=== PATIENT | female | born 1955 | race Caucasian/White ===

== ENCOUNTER 2019-09-01 14:48 | Outpatient (CLI) | payer MEDICAID ==
[2019-09-01 18:37] LABS: BASOPHILS % (AUTO) 0.3 %; EOSINOPHILS # (AUTO) 0.1 10^3/uL (0.0-0.7); EOSINOPHILS % (AUTO) 1.3 %; HGB - HEMOGLOBIN 12.3 g/dL (12.0-16.0); LYMPHOCYTES # (AUTO) 1.7 10^3/uL (1.5-3.5); LYMPHOCYTES % (AUTO) 19.1 %; MEAN CORPUSCULAR HEMOGLOBIN 30.1 pg (27.0-31.0); MEAN CORPUSCULAR VOLUME 93.9 fL (81.0-99.0); MEAN PLATELET VOLUME 11.4 fL (7.9-10.8); MONOCYTES # (AUTO) 0.6 10^3/uL (0.0-1.0); NEUTROPHILS # (AUTO) 6.4 10^3/uL (1.5-6.6); NEUTROPHILS % (AUTO) 71.9 %; PLT - PLATELET COUNT 242 10^3/uL (130-450); RED BLOOD COUNT 4.09 10^6/uL (4.20-5.40); RED CELL DISTRIBUTION WIDTH 13.6 % (12.0-15.0); WHITE BLOOD COUNT 8.9 x10^3/uL (4.8-10.8)
[2019-09-01 18:52] LABS: ALBUMIN 3.6 g/dL (3.2-5.5); ALBUMIN/GLOBULIN RATIO 0.9 (1.0-2.2); BILIRUBIN,TOTAL 0.3 mg/dL (0.2-1.0); CALCIUM 8.9 mg/dL (8.5-10.3); CREATININE 0.6 mg/dL (0.4-1.0); TOTAL PROTEIN 7.8 g/dL (6.7-8.2)
[2019-09-01 19:10] LABS: CREATININE,URINE 35.6 mg/dL; MICROALBUM/CREATININE RATIO,UR 95.5 ug/mg (<30.0); MICROALBUMIN,URINE 3.4 mg/dL (0-300.0)
[2019-09-01 19:16] LABS: HB2 TOTAL 12.6 g/dL; HEMOGLOBIN A1C 0.7 g/dL; HEMOGLOBIN A1C % 7.2 % (4.6-6.2)
== END 2019-09-01 23:59 | disposition home or self-care (01) ==
LOC: LAB.N 14:48
PROVIDERS: ATTEND Family Medicine
DX: E11.9 Type 2 diabetes mellitus without complications (principal)
CPT/HCPCS: 36415; 80053; 82043; 82570; 83036; 84443; 85025; 87077; 87086; 87181

== ENCOUNTER 2019-09-01 18:00 | Outpatient (CLI) | payer MEDICAID ==
--- NOTE | 2019-09-02 11:13 | XRAY Report ---
Reason: KNEE JOINT PAIN Procedure Date: 09/01/2019 Accession Number: [id number] / [id number] Procedure: XR - Knee 3 View LT CPT Code: Addended Final Report FULL RESULT: EXAM: LEFT KNEE RADIOGRAPHY EXAM DATE: 09/01/2019 06:27 PM. CLINICAL HISTORY: Knee joint pain. COMPARISON: None. TECHNIQUE: 3 views. FINDINGS: Bones: There is a comminuted fracture of the distal femur, age indeterminate. There is apparent displacement of the condyles from the shaft. Detailed evaluation is limited by bony demineralization and obscuration by indwelling hardware from prior arthroplasty. Joints: Right suprapatellar joint effusion. No subluxation. Soft Tissues: Moderate soft tissue swelling. Few regional soft tissue calcifications. IMPRESSION: Comminuted distal femur fracture, age indeterminant. RADIA The call report notification system was initiated by Dr. Nina Iglesias at 11:04 AM on 09/02/2019. Discussed results with Dr. Nelly Livingston . ADDENDUM: 09/02/19 11:13 The above call report findings were discussed with NELLY Livingston by Dr. Nina Iglesias at 11:10 AM on 09/02/2019.
== END 2019-09-01 18:01 | disposition home or self-care (01) ==
LOC: DI 18:00
PROVIDERS: ATTEND Family Medicine
DX: S72.492A Other fracture of lower end of left femur, initial encounter for closed fracture (principal); E11.9 Type 2 diabetes mellitus without complications; R39.9 Unspecified symptoms and signs involving the genitourinary system
CPT/HCPCS: 36415; 80053; 82043; 82570; 83036; 84443; 85025; 87077; 87086; 87181

== ENCOUNTER 2019-09-02 20:13 | Outpatient (CLI) | payer MEDICAID | END 2019-09-02 23:59 | disposition critical access hospital (66) | LOC: EMS 20:13 | PROVIDERS: ATTEND Surgery | DX: M79.605 Pain in left leg (principal); W19.XXXA Unspecified fall, initial encounter; Y92.039 Unspecified place in apartment as the place of occurrence of the external cause | CPT/HCPCS: A0425; A0429 ==

== ENCOUNTER 2019-09-02 20:31 | Emergency (ER) | payer MEDICAID ==
--- NOTE | 2019-09-02 23:29 | CT Report ---
Reason: deliniation of fracture on plain film. Procedure Date: 09/02/2019 Accession Number: [id number] / [id number] Procedure: CT - LOWER EXTREMITY WO - LT CPT Code: Final Report FULL RESULT: EXAM: LEFT KNEE CT WITHOUT CONTRAST EXAM DATE: 09/02/2019 10:39 PM. CLINICAL HISTORY: Preoperative delineation of femur fracture noted on plain film. COMPARISON: KNEE 3 VIEW LT 09/01/2019 6:05 PM. TECHNIQUE: Thin-section axial images were acquired of the knee without contrast. Post-processing: Coronal and sagittal reformats. Other: None. In accordance with CT protocol optimization, one or more of the following dose reduction techniques were utilized for this exam: automated exposure control, adjustment of mA and/or KV based on patient size, or use of iterative reconstructive technique. FINDINGS: Bones: Osteopenia. There is a 3 component total knee prosthesis. A large amount of bone formation is seen at the medial aspect of the distal femur in the area of the prosthesis. This appears to be mature bone formation. A definite acute femur fracture is not identified but could be obscured due to a large amount of beam hardening artifact. Suspected nondisplaced fracture is seen along the lateral aspect of the patella. This is also poorly seen because of beam hardening artifact. No acute fracture identified in the visualized portions of the tibia or fibula. Joints: Lateral dislocation of the patella is noted. There probably is minimal joint effusion. Musculature: Atrophy is pronounced for age. Other: No popliteal fossa cyst is identified. Vascular calcifications. Mild soft tissue swelling. IMPRESSION: 1. Total knee prosthesis with lateral dislocation of the patella. 2. Suspect fracture along the lateral aspect of the patella, suboptimally seen due to beam hardening artifact. 3. There appears to be mature bone formation at the medial aspect of the distal femur. No definite acute femur fracture is seen but could be obscured due to a large amount of beam hardening artifact. RADIA
--- NOTE | 2019-09-02 23:52 | ED Physician Documentation ---
PD HPI LOWER EXT INJURY - Stated complaint Stated Complaint: Femur Fx - Chief complaint Chief Complaint: Ext Problem - History obtained from History obtained from: Patient - History of Present Illness PD HPI LOW EXT INJURY LOCATION: Left, Knee Type of injury: Other (travel from [place]) Timing - onset: How many days ago (2) Timing - duration: Days (2) Timing - details: Gradual onset, Still present Improved by: Rest, Immobilization Worsened by: Moving, Palpating Associated symptoms: No: Weakness, Numbness, Tingling, Swelling, Discolored Contributing factors: Prior ortho surgery, Prosthetic joint Similar symptoms before: No diagnosis Recently seen: Not recently seen - Additional information Additional information: 63-year-old disabled female with a 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 She does have assistance of her family to help her in and out of bed and onto a wheeled walker. She is able to get onto the wheeled walker by herself she is not able to get up off of the wheeled walker by herself. She does usually use her lower extremities for pivots and transfers. She has recently traveled here from [place] where she had been residing until her . She is now being taken care of by her family and [place]. They have gone in to see Dr. Livingston and he has ordered an x-ray of her knee. This demonstrated what appeared to be a possible distal femur fracture. She has an appointment set up for 09/03/2019 with orthopedics. She has come to the emergency department this evening instead. She was told that she would would need splinting for this fracture. She is currently being treated for UTI. She does not give any specific history of fall. Review of Systems Constitutional: denies: Fever Eyes: denies: Decreased vision Respiratory: denies: Cough GI: denies: Vomiting Musculoskeletal: reports: Joint pain, Pain with weight bearing. 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 Rhamnosus GG/Inulin [Culturelle 1 each PO DAILY #14 cap.sprink 09/25/13 Capsule] Ciprofloxacin [Cipro] 500 mg PO BID 10/21/13 10/21/13 Diphenoxylate/Atropine [Lomotil] 1 each PO QID PRN 10/21/13 10/21/13 Rifampin [Rifadin] 300 mg PO BID 10/21/13 10/21/13 Tramadol HCl [Tramadol HCl ER] 100 mg PO BID PRN 10/21/13 10/21/13 metroNIDAZOLE [Flagyl] 500 mg PO TID 10/21/13 10/21/13 Dicyclomine [Bentyl] 10 mg PO QID PRN #15 capsule 10/22/13 - Allergies Allergies/Adverse Reactions: Allergies Allergy/AdvReac Type Severity Reaction Status Date / Time morphine Allergy Unknown unknown Verified 09/02/19 20:38 Penicillins Allergy Unknown unknown Verified 09/02/19 20:38 - Social History Does the pt smoke?: No Smoking Status: Never smoker Does the pt drink ETOH?: No Does the pt have substance abuse?: No - Immunizations Immunizations are current?: Yes - POLST Patient has POLST: No PD ED PE NORMAL - Vitals Vital signs reviewed: Yes (tachy and hypertensive) - General General: No acute distress, Well developed/nourished - HEENT HEENT: Atraumatic, PERRL, EOMI - Respiratory Respiratory: No respiratory distress - Derm Derm: Normal color, Warm and dry, No rash - Extremities Extremities: Other (There is mild pain to palpation of the left knee without obvious joint effusion and without specificity to the pain. It does not seem to be reproducible to any specific area of the knee. There are well healed surgical scars present. The knee moves through a ROM without pain. Distal n/v is intact. ) - Neuro Neuro: Alert and oriented X 3, bander and cellophaner machine 2-12 intact, No motor deficit, No sensory deficit, Normal speech Eye Opening: Spontaneous Motor: Obeys Commands Verbal: Oriented GCS Score: 15 - Psych Psych: Normal mood, Normal affect Results - Vitals Vitals: Vital Signs - 24 hr 09/02/19 09/02/19 09/02/19 20:36 22:00 22:48 Temperature 37.5 C 37.2 C Heart Rate 103 H 101 H 103 H Respiratory 16 16 24 Rate Blood Pressure 142/102 H 117/74 138/64 H O2 Saturation 99 95 98 09/02/19 23:58 Temperature 37.4 C Heart Rate 104 H Respiratory 20 Rate Blood Pressure 139/80 H O2 Saturation 92 Oxygen O2 Source Room air - Rads (name of study) knee CT Radiology: Prelim report reviewed (Impression: 1. Total knee prosthesis with lateral dislocation of the patella. Suspect fracture along the lateral aspect of the patella, suboptimally seen due to beam hardening artifact. There appears to be mature bone formation at the medial aspect of the distal femur. No definite acute femur fracture is seen but could be obscured due to a large amount of beam hardening artifact.), EMP read indepedently, See rad report PD MEDICAL DECISION MAKING - ED course Complexity details: reviewed results, re-evaluated patient, considered differential, d/w patient, d/w family, d/w building consultant ([facility] here recommends CT to further deliniate and recommends placement of a long leg knee immobilizer and follow up in 1-2 weeks. ) ED course: 63-year-old female with what appears to be an overuse injury to her left knee has had a plain film done of the knee which shows a potential distal femur fracture with a area of well-corticated bone. This does to me appear old in nature and I consulted Dr. Sanon who recommended further evaluation with a CT scan and this did have a lot of beam hardening artifact in it but a specific distal femur fracture was not fully appreciated. There is some abnormality to the patella noted and this also appears chronic. The patient is placed into a knee immobilizer and she was able to assist with a pivot transfer with use of this. She did have pain associated with this and she did have difficulty in getting up to ambulate. She will be taken care of by her family and she will follow up with orthopedics with the thought that if she does not improve she may need a scan done with a scanner that can do digital subtraction of the prosthesis. Departure - Departure Disposition: 01 Home, Self Care Clinical Impression: Knee pain, left Qualifiers: Chronicity: acute Qualified Code(s): M25.562 - Pain in left knee Condition: Stable Instructions: ED Immobilizer Knee Follow-Up: NELLY LIVINGSTON MD [Provider Admit Priv/Credential] - [facility] [Provider Group] Discharge Date/Time: 09/03/19 00:10
[2019-09-02 23:59] VITALS: BP 139/80
== END 2019-09-03 00:10 | disposition home or self-care (01) ==
LOC: EDUNIT# → ED 20:31
DX: M25.562 Pain in left knee (principal); Z96.652 Presence of left artificial knee joint; N39.0 Urinary tract infection, site not specified; E11.9 Type 2 diabetes mellitus without complications; Z79.84 Long term (current) use of oral hypoglycemic drugs; Z96.649 Presence of unspecified artificial hip joint
CPT/HCPCS: 99283; 99284

== ENCOUNTER 2019-09-05 21:16 | Outpatient (CLI) | payer MEDICAID | END 2019-09-05 23:59 | disposition critical access hospital (66) | LOC: EMS 21:16 | PROVIDERS: ATTEND Surgery | DX: R11.0 Nausea (principal); R19.7 Diarrhea, unspecified | CPT/HCPCS: A0425; A0429; A0999 ==

== ENCOUNTER 2019-09-05 21:36 | Emergency (ER) | payer MEDICAID ==
--- NOTE | 2019-09-05 22:09 | ED Physician Documentation ---
PD HPI NVD - Stated complaint Stated Complaint: DIARRHEA - Chief complaint Chief Complaint: Abd Pain - History obtained from History obtained from: Patient - History of Present Illness Timing - onset: How many weeks ago (1) Timing - details: Abrupt onset, Intermittant Associated symptoms: No: Fever, Abdominal pain Contributing factors: Recent antibiotics Worsened by: Other (nothing) Recently seen: Emergency Dept - Additonal information Additional information: c/o diarrhea every other day for a week, per patient. Review of Systems Constitutional: reports: Reviewed and negative Cardiac: reports: Reviewed and negative Respiratory: reports: Reviewed and negative GI: reports: Diarrhea. 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 Rhamnosus GG/Inulin [Culturelle 1 each PO DAILY #14 cap.sprink 09/25/13 Capsule] Ciprofloxacin [Cipro] 500 mg PO BID 10/21/13 10/21/13 Diphenoxylate/Atropine [Lomotil] 1 each PO QID PRN 10/21/13 10/21/13 Rifampin [Rifadin] 300 mg PO BID 10/21/13 10/21/13 Tramadol HCl [Tramadol HCl ER] 100 mg PO BID PRN 10/21/13 10/21/13 metroNIDAZOLE [Flagyl] 500 mg PO TID 10/21/13 10/21/13 Dicyclomine [Bentyl] 10 mg PO QID PRN #15 capsule 10/22/13 Vancomycin [Vancocin] 125 mg PO QID #39 capsule 09/05/19 - Allergies Allergies/Adverse Reactions: Allergies Allergy/AdvReac Type Severity Reaction Status Date / Time morphine Allergy Unknown unknown Verified 09/02/19 20:38 Penicillins Allergy Unknown unknown Verified 09/02/19 20:38 - Social History Does the pt smoke?: No Smoking Status: Never smoker Does the pt drink ETOH?: No Does the pt have substance abuse?: No - Immunizations Immunizations are current?: Yes - POLST Patient has POLST: No PD ED PE NORMAL - Vitals Vital signs reviewed: Yes - General General: Alert and oriented X 3, No acute distress, Well developed/nourished - Cardiac Cardiac: RRR, No murmur - Respiratory Respiratory: No respiratory distress, Clear bilaterally - Abdomen Abdomen: Soft, Non tender Results - Vitals Vitals: Oxygen O2 Source Room air PD MEDICAL DECISION MAKING - ED course Complexity details: reviewed old records, considered differential, d/w patient ED course: patient c/o episodic diarrhea x 1 week. recent antibiotic use and h/o c. diff (2013 ED record indicates this). she is unfocussed regarding providing HPI and ROS. I recommended obtaining stool for c. diff. However, she does not want to wait for this, says it could take hours before she is able to provide a stool sample. I am not confident that she will be able to, or interested in, pursuing quick f/u to provide stool sample in outpatient setting with her PMD. considering all of these factor, will treat empirically for c diff. I encouraged her to f/u with PMD, as confirmatory testing might be considered. Departure - Departure Disposition: 01 Home, Self Care Clinical Impression: Diarrhea Qualifiers: Diarrhea type: unspecified type Qualified Code(s): R19.7 - Diarrhea, unspecified Condition: Good Instructions: ED Diarrhea Bacterial Follow-Up: NELLY PUENTE MD [Primary Care Provider] - Prescriptions: Vancomycin [Vancocin] 125 mg PO QID #39 capsule Discharge Date/Time: 09/05/19 23:25
[2019-09-05] MEDS ORDERED: VANCOMYCIN 125 MG CAPSULE PO SCH (23:00)
[2019-09-05 23:23] VITALS: BP 114/79
== END 2019-09-05 23:25 | disposition home or self-care (01) ==
LOC: EDUNIT# → ED 21:36
DX: R19.7 Diarrhea, unspecified (principal); Z87.19 Personal history of other diseases of the digestive system; E11.9 Type 2 diabetes mellitus without complications; Z79.84 Long term (current) use of oral hypoglycemic drugs
CPT/HCPCS: 99283

== ENCOUNTER 2019-09-09 23:12 | Outpatient (CLI) | payer MEDICAID | END 2019-09-09 23:59 | disposition critical access hospital (66) | LOC: EMS 23:12 | PROVIDERS: ATTEND Surgery | DX: R46.4 Slowness and poor responsiveness (principal); M54.5 Low back pain; R53.1 Weakness | CPT/HCPCS: A0425; A0429; A0999 ==

== ENCOUNTER 2019-09-09 23:33 | Inpatient (IN) | payer MEDICAID ==
--- NOTE | 2019-09-09 23:46 | ED Physician Documentation ---
History of Present Illness - Stated complaint Stated Complaint: WEAKNESS - Additonal information Additional information: This is a 63-year-old female with a history of diabetes who was sent in via EMS due to confusion. Patient reportedly was recently diagnosed a UTI, she apparent ly has been receiving Bactrim for this Since 09/03, but over last day she has had increasing confusion prompting her daughter to call EMS to bring her in for evaluation. There were no report of falls or head trauma. She denies any pain or complaints at this time. Patient is a very poor historian and rambles with her speech is unable to provide further information. She was previously living in [place] but moved out here for her daughter to help take care of her. 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 Rhamnosus GG/Inulin [Culturelle 1 each PO DAILY #14 cap.sprink 09/25/13 Capsule] Ciprofloxacin [Cipro] 500 mg PO BID 10/21/13 10/21/13 Diphenoxylate/Atropine [Lomotil] 1 each PO QID PRN 10/21/13 10/21/13 Rifampin [Rifadin] 300 mg PO BID 10/21/13 10/21/13 Tramadol HCl [Tramadol HCl ER] 100 mg PO BID PRN 10/21/13 10/21/13 metroNIDAZOLE [Flagyl] 500 mg PO TID 10/21/13 10/21/13 Dicyclomine [Bentyl] 10 mg PO QID PRN #15 capsule 10/22/13 Vancomycin [Vancocin] 125 mg PO QID #39 capsule 09/05/19 - Allergies Allergies/Adverse Reactions: Allergies Allergy/AdvReac Type Severity Reaction Status Date / Time morphine Allergy Unknown unknown Verified 09/02/19 20:38 Penicillins Allergy Unknown unknown Verified 09/02/19 20:38 - Social History Does the pt smoke?: No Smoking Status: Never smoker Does the pt drink ETOH?: No Does the pt have substance abuse?: No - Immunizations Immunizations are current?: Yes - POLST Patient has POLST: No PD ED PE NORMAL - General General: No acute distress - HEENT HEENT: Atraumatic - Cardiac Cardiac: RRR - Respiratory Respiratory: No respiratory distress - Abdomen Abdomen: Soft, Non tender, Other (Rotund) - Extremities Extremities: Other (Brace over LLE) - 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 She answers most questions with rambling stories that are nonsensical, and oftentimes Contain strings of words that do not make sense) Results - Vitals Vitals: Vital Signs - 24 hr 09/09/19 23:40 Temperature 36.6 C Heart Rate 101 H Respiratory 23 Rate Blood Pressure 130/110 H O2 Saturation 91 L Oxygen O2 Source Room air - EKG (time done) 23:57 Other comments: Other comments (Rate 95, rhythm sinus there is no ST segment elevation or depression, no abnormal T wave inversions, intervals within normal limits.) - Labs Labs: Laboratory Tests 09/09/19 09/09/19 09/09/19 00:35 23:55 23:55 WBC 11.0 H RBC 4.10 L Hgb 12.2 Hct 39.4 MCV 96.1 MCH 29.8 MCHC 31.0 L RDW 13.7 Plt Count 263 MPV 11.1 H Neut # (Auto) 7.5 H Lymph # (Auto) 2.3 Coke # (Auto) 0.8 Eos # (Auto) 0.4 Baso # (Auto) 0.0 Absolute Nucleated RBC 0.00 Nucleated RBC % 0.0 VBG pH 7.311 VBG pCO2 43.8 VBG pO2 149.9 H VBG HCO3 21.6 L VBG Total CO2 23.0 L VBG O2 Saturation 98.4 H VBG Base Excess -4.5 L Sodium 137 Potassium 6.4 H* Chloride 106 Carbon Dioxide 24 Anion Gap 7.0 BUN 35 H Creatinine 2.3 H Estimated GFR (MDRD) 21 L Glucose 156 H Lactic Acid Calcium 9.2 Total Bilirubin 0.4 AST 14 ALT 13 Alkaline Phosphatase 105 Total Protein 7.6 Albumin 3.4 Globulin 4.2 Albumin/Globulin Ratio 0.8 L Lipase 26 TSH Urine Color Urine Clarity Urine pH Ur Specific [place] Urine Protein Urine Glucose (UA) Urine Ketones Urine Occult Blood Urine Nitrite Urine Bilirubin Urine Urobilinogen Ur Leukocyte Esterase Urine RBC Urine WBC Ur Squamous Epith Cells Urine Bacteria Ur Microscopic Review Urine Culture Comments Urine Opiates Screen Ur Oxycodone Screen Urine Methadone Screen Ur Propoxyphene Screen Ur Barbiturates Screen Ur Tricyclics Screen Ur Phencyclidine Scrn Ur Amphetamine Screen U Methamphetamines Scrn U Benzodiazepines Scrn Urine Cocaine Screen U Cannabinoids Screen Ethyl Alcohol < 5.0 09/09/19 09/10/19 09/10/19 23:55 00:35 01:28 WBC RBC Hgb Hct MCV MCH MCHC RDW Plt Count MPV Neut # (Auto) Lymph # (Auto) Coke # (Auto) Eos # (Auto) Baso # (Auto) Absolute Nucleated RBC Nucleated RBC % VBG pH VBG pCO2 VBG pO2 VBG HCO3 VBG Total CO2 VBG O2 Saturation VBG Base Excess Sodium Potassium Chloride Carbon Dioxide Anion Gap BUN Creatinine Estimated GFR (MDRD) Glucose Lactic Acid 1.5 Calcium Total Bilirubin AST ALT Alkaline Phosphatase Total Protein Albumin Globulin Albumin/Globulin Ratio Lipase TSH 2.15 Urine Color YELLOW Urine Clarity CLOUDY Urine pH 5.5 Ur Specific [place] >=1.030 H Urine Protein 100 H Urine Glucose (UA) 100 H Urine Ketones TRACE Urine Occult Blood MODERATE H Urine Nitrite POSITIVE H Urine Bilirubin NEGATIVE Urine Urobilinogen 0.2 (NORMAL) Ur Leukocyte Esterase LARGE H Urine RBC 0-5 Urine WBC >25 H Ur Squamous Epith Cells FEW Squamous Urine Bacteria Many H Ur Microscopic Review INDICATED Urine Culture Comments INDICATED Urine Opiates Screen NEGATIVE Ur Oxycodone Screen NEGATIVE Urine Methadone Screen NEGATIVE Ur Propoxyphene Screen NEGATIVE Ur Barbiturates Screen NEGATIVE Ur Tricyclics Screen NEGATIVE Ur Phencyclidine Scrn NEGATIVE Ur Amphetamine Screen NEGATIVE U Methamphetamines Scrn NEGATIVE U Benzodiazepines Scrn POSITIVE H Urine Cocaine Screen NEGATIVE U Cannabinoids Screen POSITIVE H Ethyl Alcohol - Rads (name of study) CXR Radiology: Other (No acute cardiopulmonary abnormality) CT head WO Radiology: Other PD MEDICAL DECISION MAKING - ED course Complexity details: considered differential (UTI, sepsis, stroke, intracranial hemorrhage, pneumonia, electrolyte abnormality, dehydration, MAYO) ED course: On arrival patient is tachycardic, hypertensive, and tachypneic, she is also confused and rambling in her speech. She has no focal deficits, is able to follow commands and her strength, sensation, and cranial nerves are intact. CT head shows no acute intracranial abnormlity. IV was inserted, labs are drawn, blood cultures were drawn, and patient was placed on the monitor. Labs show a leukocytosis of 11, normal hemoglobin, chemistry panel showed a potassium of 6.4, her EKG showed no changes of hyperkalemia, she was given calcium gluconate as well as insulin and glucose. Her creatinine is 2.3 up from 0.6 last week, and her BUN is elevated as well. Her lactate is normal. Her urine shows a nitr ate positive sample with greater than 25 white blood cells, and the urine itself was thick and consistent with infection. Her U tox does show positive benzodiazepines and cannabinoids for unclear reasons. Chest x-ray shows no acute abnormality. Patient was given ceftriaxone as well as normal saline. Review of her past culture shows Proteus mirabilis and E. coli, both sensitive to ceftriaxone. At this time patient appears to have sepsis from a urinary source, with encephalopathy, she also has a MAYO. She was admitted to the hospital for further evaluation and treatment, her heart rate was improving at the time of admission, and she otherwise remained stable Departure - Departure Disposition: [facility] DC/Xfer Clinical Impression: Encephalopathy, Hyperkalemia Sepsis Qualifiers: Sepsis type: sepsis due to unspecified organism Sepsis acute organ dysfunction status: with acute organ dysfunction Severe sepsis acute organ dysfunction type: encephalopathy Severe sepsis shock status: without septic shock Qualified Code(s): A41.9 - Sepsis, unspecified organism Condition: Stable Discharge Date/Time: 09/10/19 03:29
[2019-09-10 00:08] LABS: BASOPHILS % (AUTO) 0.4 %; EOSINOPHILS # (AUTO) 0.4 10^3/uL (0.0-0.7); EOSINOPHILS % (AUTO) 3.4 %; HGB - HEMOGLOBIN 12.2 g/dL (12.0-16.0); LYMPHOCYTES # (AUTO) 2.3 10^3/uL (1.5-3.5); MEAN CORPUSCULAR HEMOGLOBIN 29.8 pg (27.0-31.0); MEAN CORPUSCULAR VOLUME 96.1 fL (81.0-99.0); MEAN PLATELET VOLUME 11.1 fL (7.9-10.8); MONOCYTES # (AUTO) 0.8 10^3/uL (0.0-1.0); MONOCYTES % (AUTO) 7.2 %; NEUTROPHILS # (AUTO) 7.5 10^3/uL (1.5-6.6); NEUTROPHILS % (AUTO) 67.5 %; PLT - PLATELET COUNT 263 10^3/uL (130-450); RED CELL DISTRIBUTION WIDTH 13.7 % (12.0-15.0)
[2019-09-10 00:24] LABS: ALBUMIN 3.4 g/dL (3.2-5.5); ALBUMIN/GLOBULIN RATIO 0.8 (1.0-2.2); ALKALINE PHOSPHATASE 105 IU/L (42-121); ALT ALANINE AMINOTRANSFERASE 13 IU/L (10-60); AST ASPARTATE AMINOTRANSFERASE 14 IU/L (10-42); BILIRUBIN,TOTAL 0.4 mg/dL (0.2-1.0); BUN - BLOOD UREA NITROGEN 35 mg/dL (6-20); CALCIUM 9.2 mg/dL (8.5-10.3); CARBON DIOXIDE - CO2 24 mmol/L (21-32); CHLORIDE 106 mmol/L (101-111); CREATININE 2.3 mg/dL (0.4-1.0); GFR - MDRD 21 (>89); GLUCOSE 156 mg/dL (70-100); LIPASE 26 U/L (22-51); SODIUM 137 mmol/L (135-145); TOTAL PROTEIN 7.6 g/dL (6.7-8.2)
[2019-09-10] MEDS ORDERED: CALCIUM GLUCONATE 2,000 MG in SODIUM CHLORIDE 0.9% 100ML 100 ML IV STA (00:29)
[2019-09-10] MEDS ORDERED: INSULIN REGULAR HUMAN 100 UNIT/1 ML 10 ML MDV IVP STA (00:30)
[2019-09-10] MEDS ORDERED: DEXTROSE 10% 250 ML IV STA ×2 (00:31→05:35)
--- NOTE | 2019-09-10 00:39 | CT Report ---
Reason: Confusion, AMS Procedure Date: 09/10/2019 Accession Number: [id number] / [id number] Procedure: CT - HEAD WO CPT Code: Final Report FULL RESULT: EXAM: CT HEAD EXAM DATE: 09/10/2019 12:29 AM. CLINICAL HISTORY: Confusion, AMS. COMPARISON: CT HEAD W/O CONT 12/22/2012 3:16 PM. TECHNIQUE: Multiaxial CT images were obtained from the foramen magnum to the vertex. Reformats: Sagittal and coronal. IV contrast: None. In accordance with CT protocol optimization, one or more of the following dose reduction techniques were utilized for this exam: automated exposure control, adjustment of mA and/or KV based on patient size, or use of iterative reconstructive technique. FINDINGS: Parenchyma: Compared to the prior study a small lacunar injury has developed in the right globus pallidus measuring 5 mm and another small lacunar injury has developed near the anterior limb of the left internal capsule which measures 7 mm x 5 mm. There are no acute hemorrhages in the brain. No evidence for developing infarcts. Extraaxial Spaces: The CSF spaces are generous for patient this age. No subdural or epidural collections identified. Ventricles: The ventricles have shown progressive enlargement compared to the prior exam together with the prominent sulci findings likely related to volume loss. Sinuses and Orbits: Imaged paranasal sinuses, orbits, and mastoids show no significant abnormality. Bones: No evidence of fracture or calvarial defect. Other: None. IMPRESSION: 1. No acute changes in the brain. 2. Volume loss as described. 3. Old lacunar injuries in the right basal ganglia and left anterior internal capsule. RADIA
--- NOTE | 2019-09-10 00:58 | XRAY Report ---
Reason: chest pain Procedure Date: 09/10/2019 Accession Number: [id number] / [id number] Procedure: XR - Chest 1 View X-Ray CPT Code: 65768 Final Report FULL RESULT: EXAM: CHEST RADIOGRAPHY EXAM DATE: 09/10/2019 12:25 AM. CLINICAL HISTORY: Chest pain. COMPARISON: 04/10/2012 3:45 PM. TECHNIQUE: 1 view. FINDINGS: Lungs/Pleura: No focal opacities evident. No pleural effusion. No pneumothorax. Mediastinum: Within exam limitations, the cardiomediastinal contour is normal. Other: Severe bilateral glenohumeral joint degeneration with deformity. IMPRESSION: Clear lungs with no acute cardiopulmonary process seen. Severe bilateral glenohumeral joint degeneration with deformity. RADIA
[2019-09-10] MEDS ORDERED: SODIUM CHLORIDE 0.9% 500 ML IV ONE (01:01)
[2019-09-10 01:07] LABS: VBG BASE EXCESS -4.5 mmol/L (-2 - +2); VBG PCO2 43.8 mmHg (41-51); VBG PH 7.311 (7.31-7.41); VBG PO2 149.9 mmHg (25-47)
[2019-09-10 01:34] LABS: MUDS CUTOFF CONCENTRATIONS CUTOFF CONC BELOW:
[2019-09-10 01:39] LABS: BILIRUBIN,URINE NEGATIVE (NEGATIVE); GLUCOSE, URINE (UA) 100 mg/dL (NEGATIVE); KETONES,URINE (UA) TRACE mg/dL (NEGATIVE); LEUKOCYTE ESTERASE, URINE LARGE (NEGATIVE); NITRITE,URINE POSITIVE (NEGATIVE); OCCULT BLOOD,URINE MODERATE (NEGATIVE); PH,URINE 5.5 PH (5.0-7.5); PROTEIN,URINE 100 mg/dL (NEGATIVE); UROBILINOGEN,URINE 0.2 (NORMAL) E.U./dL (NORMAL)
[2019-09-10 01:40] LABS: CLARITY,URINE CLOUDY (CLEAR)
[2019-09-10 01:47] LABS: BACTERIA,URINE Many /HPF (None Seen); RBC,URINE 0-5 /HPF (0-5); SQUAMOUS EPITHELIAL CELL,UR FEW Squamous (<= Few)
[2019-09-10] MEDS ORDERED: cefTRIAXone 1 GM in SODIUM CHLORIDE 0.9% MINIBAG 100 ML IV STA (01:49)
[2019-09-10 01:52] LABS: AMPHETAMINE SCREEN,URINE NEGATIVE (NEGATIVE); BENZODIAZEPINES SCREEN, URINE POSITIVE (NEGATIVE); COCAINE SCREEN URINE NEGATIVE (NEGATIVE); METHADONE SCREEN, URINE NEGATIVE (NEGATIVE); METHAMPHETAMINES SCREEN, URINE NEGATIVE (NEGATIVE); OPIATE SCREEN, URINE NEGATIVE (NEGATIVE); OXYCODONE SCREEN, URINE NEGATIVE (NEGATIVE); PROPOXYPHENE SCREEN, URINE NEGATIVE (NEGATIVE); TRICYCLIC ANTIDEPRESSANT,URINE NEGATIVE (NEGATIVE)
[2019-09-10] MEDS ORDERED: SODIUM CHLORIDE FLUSH 0.9% 10 ML SYRINGE IVP PRN (02:45)
[2019-09-10] MEDS ORDERED: SODIUM CHLORIDE 0.9% 1,000 ML IV ONE (02:49)
--- NOTE | 2019-09-10 02:59 | HISTORY & PHYSICAL EXAMINATION ---
Chief Complaint - Chief Complaint Chief Complaint: encephalopathy History of Present Illness - Admitted From Admitted From:: [facility] ED - History Obtained From Records Reviewed: yes History obtained from: daughter and ED staff Exam Limitations: encephalopathy - History of Present Illness HPI Comment/Other: Patient is a 63 y/o female who was brought in by her daughter with encephalopathy. Her daughter reports that she was alert in the morning when but slowly started getting weak and sleepy through the course of the day. At lunch she could hardly stay awake enough to eat. She was also reaching for things that were not there and mumbling unintelligible words. At dinner she was unarousable. The patient just moved back to [facility] from the [facility] on August 19 2019. She was living there with her who was her main caregiver until he suddenly from a coronary event. She was then in a nursing facility where she was supposedly on antibiotics for ?UTI. It is also reported that she had broken her right leg and it healed wrongly. She has Tbnissw-Aqdcg-Mlmyv Disease and has had multiple orthopedic surgeries. As a result she is full assist for transfers. She is not able to bear weight on her feet. Her daughter has bee lifting her to transfer her for the past days. She had an initial visit with [facility] to establish care. She has been on bactrim since 09/03/19 for a UTI. She had also been having diarrhea and has been on oral vancomycin. It is unclear if C.diff was tested prior. He daughter reports improvement in the diarrhea. In the ED attempt at obtaining a UA resulted in a thick whitish urine sample described as almost sludge-like. It was indicative of a UTI. She had a creatinine of 2.3. Eight days prior her creatinine was 0.6. She was also found to have a potassium of 6.4. though EKG showed normal sinus rhythm. She is currently altered and unable to provide any history. However as a result of these objective findings, she is being admitted for further treatment. 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 Previous records indicate no tobacco or alcohol use - POLST Patient has POLST: No POLST Status: Full Code Meds/Allgy - Home Medications Home Medications: Ambulatory Orders Medication Instructions Recorded Confirmed metFORMIN [Glucophage] 500 mg PO BIDWM 01/31/13 04/07/13 Fesoterodine Fumarate [Toviaz] 4 mg PO DAILY #14 tab.er.24h 04/07/13 Temazepam 7.5 mg PO QPM #14 capsule 04/07/13 HYDROcod/ACETAM 5/325 [Vicodin 1 - 2 ea PO Q6H PRN #15 tablet 09/15/13 5/325] Metronidazole [Flagyl] 500 mg PO TID #30 tablet 09/15/13 Sulfamethox/Trimeth 800/160 1 each PO BID #14 tablet 09/15/13 [Bactrim Ds] L. Rhamnosus GG/Inulin [Culturelle 1 each PO DAILY #14 cap.sprink 09/25/13 Capsule] Ciprofloxacin [Cipro] 500 mg PO BID 10/21/13 10/21/13 Diphenoxylate/Atropine [Lomotil] 1 each PO QID PRN 10/21/13 10/21/13 Rifampin [Rifadin] 300 mg PO BID 10/21/13 10/21/13 Tramadol HCl [Tramadol HCl ER] 100 mg PO BID PRN 10/21/13 10/21/13 metroNIDAZOLE [Flagyl] 500 mg PO TID 10/21/13 10/21/13 Dicyclomine [Bentyl] 10 mg PO QID PRN #15 capsule 10/22/13 Vancomycin [Vancocin] 125 mg PO QID #39 capsule 09/05/19 - Allergies Allergies/Adverse Reactions: Allergies Allergy/AdvReac Type Severity Reaction Status Date / Time morphine Allergy Unknown unknown Verified 09/02/19 20:38 Penicillins Allergy Unknown unknown Verified 09/02/19 20:38 Review of Systems - Other Findings Other Findings: ROS is limited because the patient is currently altered and unresponsive thus unable to provide Prior Level of Functionality: Patient has Fobgdtc-Heqls-Chcoo. She has extensive knee and joint surgeries. She had a recent fracture on the ?right leg which set and healed incorrectly. She is unable to bear weight and is full assist for transfer. Exam - Vital Signs Vital Signs: Vital Signs x48h Temp Pulse Resp BP Pulse Ox 09/09/19 23:40 36.6 C 101 H 23 130/110 H 91 L - Physical Exam General Appearance: positive: No acute distress, Lethargic. negative: Alert Eyes Bilateral: positive: Normal inspection, PERRL, EOMI ENT: positive: ENT inspection nml, Dry mucous membranes Neck: positive: Nml inspection, No JVD, Trachea midline Respiratory: positive: Chest non-tender, No respiratory distress. negative: Wheezes, Rales, Rhonchi Cardiovascular: positive: No murmur, Tachycardia Abdomen: positive: Non-tender, No organomegaly, Nml bowel sounds, Other (obese abdomen) Back: positive: Nml inspection Skin: positive: Color nml, No rash Extremities: positive: No pedal edema, Other (left foot internally rotated Multiple orthopedic surgerical scars on lower extremities) Neurologic/Psychiatric: negative: Oriented x3 Sepsis Event Note (H) - Evaluation Current Stage of Sepsis: Sepsis Possible source of Sepsis: positive: Genitourinary - Sepsis Criteria Sepsis Criteria: Recorded Heart Rate greater than 90 bpm, Recorded Respiratory Rate greater than 20, 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 (unrelated to primary neuro pathology) Conclusion/Plan - Problem List (1) Sepsis Conclusion/Plan: 2/2 UTI Patient currently encephalopathic Blood and urine cultures drawn Patient started on rocephin IV hydration with normal saline Qualifiers: Sepsis type: sepsis due to unspecified organism Sepsis acute organ dysfunction status: with acute organ dysfunction Severe sepsis acute organ dysfunction type: encephalopathy Severe sepsis shock status: without septic shock Qualified Code(s): A41.9 - Sepsis, unspecified organism; R65.20 - Severe sepsis without septic shock; G93.40 - Encephalopathy, unspecified (2) Encephalopathy acute Conclusion/Plan: Likely multi factorial 2/2 Medications: Lyrica, trazodone, tramadol, flexeril Pt was also positive for benzo and ?THC 2/2 UTI Hold all potentially contributing meds. Patient on rocephin. IV hydration Blood and urine cultures pending (3) UTI (urinary tract infection) Conclusion/Plan: On rocephin. IV hydration with normal saline Blood and urine cultures pending (4) MAYO (acute kidney injury) Conclusion/Plan: Creatinine 8 days ago was 0.6. Likely multifactorial Medication: Patient was on bactrim for the past 7 days, diclofenac (NSAID) Pre-renal: Pt has been having diarrhea and poor oral intake Post-renal: UTI Discontinue bactrim. Hold diclofenac. IV hydration with normal saline. On rocephin (5) Hyperkalemia Conclusion/Plan: Potassium was 6.4. Likely related to acute kidney injury Patient given dextrose and insulin in the ED. Hydrating patient with normal saline. Will recheck am labs and treat accordingly. EKG showed NSR (6) Diabetes mellitus Conclusion/Plan: SSI. Accu checks Hold metformin Qualifiers: Diabetes mellitus type: type 2 (7) Chronic pain Conclusion/Plan: Related to Klfbmxb-Hawlk-Vibky and multiple orthopedic surgeries in the hils and knees. Hold tramadol due to encephalopathy. Tylenol only for now. Patient is a full assist. She will likely need placement. Social work consulted (8) Depression Conclusion/Plan: On escitalopram - Lab Results Fish Bones: 09/09/19 23:55 09/09/19 23:55 Core Measures - Anticipated LOS I expect patient to be DC'd or transferred within 96 hours.: Yes - DVT/VTE - Prophylaxis VTE/DVT Device ordered at admit?: Yes VTE/DVT Prophylaxis med ordered at admit?: Yes
[2019-09-10] MEDS: SODIUM CHLORIDE FLUSH 0.9% 10 ML SYRINGE IVP SCH ×2 (04:05→17:38)
[2019-09-10] MEDS: SODIUM CHLORIDE 0.9% 1,000 ML IV SCH ×3 (05:19→21:28)
[2019-09-10 05:24] LABS: BASOPHILS # (AUTO) 0.1 10^3/uL (0.0-0.1); BASOPHILS % (AUTO) 0.4 %; EOSINOPHILS # (AUTO) 0.4 10^3/uL (0.0-0.7); EOSINOPHILS % (AUTO) 3.2 %; HGB - HEMOGLOBIN 11.1 g/dL (12.0-16.0); LYMPHOCYTES # (AUTO) 1.9 10^3/uL (1.5-3.5); LYMPHOCYTES % (AUTO) 15.8 %; MEAN CORPUSCULAR HEMOGLOBIN 30.3 pg (27.0-31.0); MEAN CORPUSCULAR VOLUME 97.8 fL (81.0-99.0); MONOCYTES # (AUTO) 0.8 10^3/uL (0.0-1.0); MONOCYTES % (AUTO) 6.7 %; NEUTROPHILS # (AUTO) 8.7 10^3/uL (1.5-6.6); NEUTROPHILS % (AUTO) 73.4 %; PLT - PLATELET COUNT 261 10^3/uL (130-450); RED BLOOD COUNT 3.66 10^6/uL (4.20-5.40); RED CELL DISTRIBUTION WIDTH 13.5 % (12.0-15.0); WHITE BLOOD COUNT 11.9 x10^3/uL (4.8-10.8)
[2019-09-10 05:26] LABS: CALCIUM 8.6 mg/dL (8.5-10.3); CREATININE 2.2 mg/dL (0.4-1.0)
[2019-09-10 05:28] LABS: HB2 TOTAL 11.1 g/dL; HEMOGLOBIN A1C 0.72 g/dL; HEMOGLOBIN A1C % 8.1 % (4.6-6.2)
[2019-09-10] MEDS ORDERED: INSULIN REGULAR HUMAN 300 UNIT/3 ML VIAL IVP ONE (05:36)
[2019-09-10] MEDS ORDERED: SODIUM POLYSTYRENE SULFONATE 15 GM/60 ML BOTTLE PO ONE ×2 (05:38→14:17)
[2019-09-10] MEDS: INSULIN ASPART 300 UNIT/3 ML PEN SUBQ SCH ×4 (08:44→21:28)
[2019-09-10] MEDS: ENOXAPARIN 30 MG/0.3 ML SYRINGE SUBQ SCH (08:45)
[2019-09-10] MEDS: NYSTATIN POWDER 15 GM TOP SCH ×2 (08:46→21:29)
[2019-09-10 10:22] LABS: CALCIUM 8.3 mg/dL (8.5-10.3); CREATININE 2.1 mg/dL (0.4-1.0)
--- NOTE | 2019-09-10 11:35 | PHARMACY PROGRESS NOTE ---
- Best Possible Medication History Admit Date and Time: 09/10/19 0245 Processed by: Pharmacy Medication History completed: Yes Patient Interview: Completed (Patient is not a good historian) Secondary Source(s): Prescription bottles, Physician records As the person ultimately responsible for medication therapy, providers are able to order a medication from an existing home medication list in [facility] via the "Reconcile Routine" prior to Confirmation of that medication by program support clerk. Such practice is discouraged except when the physician, in their clinical judgment, deems that a medical need exists for a medication without regard to previous use.
[2019-09-10] MEDS: cefTRIAXone 1 GM in SODIUM CHLORIDE 0.9% MINIBAG 100 ML IV SCH (15:16)
[2019-09-11] MEDS: SODIUM CHLORIDE FLUSH 0.9% 10 ML SYRINGE IVP SCH ×3 (01:19→17:16)
[2019-09-11] MEDS ORDERED: cefTRIAXone 1 GM in SODIUM CHLORIDE 0.9% MINIBAG 100 ML IV ONE (03:00)
[2019-09-11 04:56] LABS: BASOPHILS % (AUTO) 0.3 %; EOSINOPHILS # (AUTO) 0.3 10^3/uL (0.0-0.7); EOSINOPHILS % (AUTO) 3.6 %; HGB - HEMOGLOBIN 9.9 g/dL (12.0-16.0); LYMPHOCYTES # (AUTO) 1.6 10^3/uL (1.5-3.5); LYMPHOCYTES % (AUTO) 21.7 %; MEAN CORPUSCULAR HEMOGLOBIN 29.8 pg (27.0-31.0); MEAN CORPUSCULAR HGB CONC 30.4 g/dL (32.0-36.0); MEAN CORPUSCULAR VOLUME 98.2 fL (81.0-99.0); MEAN PLATELET VOLUME 10.7 fL (7.9-10.8); MONOCYTES # (AUTO) 0.5 10^3/uL (0.0-1.0); MONOCYTES % (AUTO) 7.3 %; NEUTROPHILS # (AUTO) 4.9 10^3/uL (1.5-6.6); NEUTROPHILS % (AUTO) 66.6 %; PLT - PLATELET COUNT 227 10^3/uL (130-450); RED BLOOD COUNT 3.32 10^6/uL (4.20-5.40); RED CELL DISTRIBUTION WIDTH 13.7 % (12.0-15.0); WHITE BLOOD COUNT 7.4 x10^3/uL (4.8-10.8)
[2019-09-11 05:11] LABS: CALCIUM 8.3 mg/dL (8.5-10.3); CREATININE 1.2 mg/dL (0.4-1.0)
[2019-09-11] MEDS: SODIUM CHLORIDE 0.9% 1,000 ML IV SCH ×3 (06:52→22:04)
--- NOTE | 2019-09-11 08:38 | PROVIDER PROGRESS NOTE ---
Subjective - Prog Note Date Prog Note Date: 09/11/19 - Subjective Subjective: She is more awake this morning and is able to eat her breakfast. She reports feeling better. She believes she is in [facility]. She also believes the year is 1992. She reports her pain is well controlled. Current Medications - Current Medications Current Medications: Active Medications Acetaminophen (Tylenol) 650 mg PO Q4HR PRN PRN Reason: Pain 1 to 4 Clopidogrel Bisulfate (Plavix) 75 mg PO DAILY [facility] Enoxaparin Sodium (Lovenox) 30 mg SUBQ DAILY [facility] Last Admin: 09/10/19 08:45 Dose: 30 mg Escitalopram Oxalate (Lexapro) 10 mg PO DAILY [facility] Sodium Chloride (Normal Saline 0.9%) 1,000 mls @ 125 mls/hr IV .Q8H [facility] Last Admin: 09/11/19 06:52 Dose: 125 mls/hr Ceftriaxone Sodium 1 gm/ (Sodium Chloride) 100 mls @ 200 mls/hr IV DAILY [facility] Last Infusion: 09/10/19 15:50 Dose: Infused Insulin Aspart (Novolog) 1 - 5 unit SUBQ 0800,1200,1700,2100 [facility]; Protocol Last Admin: 09/10/19 21:28 Dose: 1 unit Nystatin (Nystop) 1 applic TOP BID [facility] Last Admin: 09/10/19 21:29 Dose: 1 applic Sodium Chloride (Normal Saline Flush 0.9%) 10 ml IVP PRN PRN PRN Reason: NEEDED PER PROVIDER ORDERS Last Admin: 09/11/19 06:52 Dose: 10 ml Sodium Chloride (Normal Saline Flush 0.9%) 10 ml IVP 0100,0900,1700 [facility] Last Admin: 09/11/19 01:19 Dose: Not Given metFORMIN [Glucophage] 1,000 mg PO BID 01/31/13 Diphenoxylate/Atropine [Lomotil] 1 each PO QID PRN 10/21/13 Rifampin [Rifadin] 300 mg PO BID 10/21/13 Clopidogrel [Plavix] 75 mg PO DAILY 09/10/19 Cyclobenzaprine HCl 5 mg PO TID PRN 09/10/[address] [Voltaren] 75 mg PO BID 09/10/19 Escitalopram [Lexapro] 10 mg PO DAILY 09/10/19 Insulin Glargine [Lantus Solostar] 40 units SUBQ QPM 09/10/19 Pregabalin [Lyrica] 100 mg PO BID 09/10/19 Solifenacin Succinate [Vesicare] 10 mg PO DAILY 09/10/19 Sulfamethox/Trimeth 800/160 [Bactrim Ds] 1 tab PO BID 09/10/19 traMADol [Ultram] 50 mg PO Q6HR PRN 09/10/19 traZODone [Desyrel] 50 mg PO QPM 09/10/19 Objective - Vital Signs/Intake & Output Reviewed Vital Signs: Yes Vital Signs: Vital Signs x48h Temp Pulse Resp BP Pulse Ox 09/11/19 07:59 37.0 C 87 20 133/68 H 95 09/11/19 03:23 36.6 C 83 18 109/69 96 Intake & Output: Intake & Output 09/08/19 09/09/19 09/10/19 09/11/19 23:59 23:59 23:59 23:59 Intake Total 5623.75 1000 Output Total 1500 775 Balance 4123.75 225 - Objective General Appearance: positive: No acute distress, Alert Eyes Bilateral: positive: Normal inspection ENT: positive: ENT inspection nml Neck: positive: Nml inspection Respiratory: positive: No respiratory distress. negative: Wheezes, Rales, Rhonchi Cardiovascular: positive: No murmur, Tachycardia. negative: Bradycardia, Systolic murmur, Diastolic murmur Abdomen: positive: Non-tender, No distention. negative: Tenderness, Guarding, Rebound Skin: positive: No rash Extremities: positive: No pedal edema, Other (Her right foot is contracted with a high arch. Left extremity brace is in place.) Neurologic/Psychiatric: positive: Disoriented to place, Disoriented to time, Other (No focal motor deficits.). negative: Disoriented to person - Lab Results Fish Bones: 09/11/19 04:30 09/11/19 04:30 Other Labs: Lab Results x24hrs 09/11/19 09/11/19 09/10/19 Range/Units 04:30 04:30 10:05 WBC 7.4 (4.8-10.8) x10^3/uL RBC 3.32 L (4.20-5.40) 10^6/uL Hgb 9.9 L (12.0-16.0) g/dL Hct 32.6 L (37.0-47.0) % MCV 98.2 (81.0-99.0) fL MCH 29.8 (27.0-31.0) pg MCHC 30.4 L (32.0-36.0) g/dL RDW 13.7 (12.0-15.0) % Plt Count 227 (130-450) 10^3/uL MPV 10.7 (7.9-10.8) fL Neut # (Auto) 4.9 (1.5-6.6) 10^3/uL Lymph # (Auto) 1.6 (1.5-3.5) 10^3/uL [place] # (Auto) 0.5 (0.0-1.0) 10^3/uL Eos # (Auto) 0.3 (0.0-0.7) 10^3/uL Baso # (Auto) 0.0 (0.0-0.1) 10^3/uL Absolute Nucleated RBC 0.00 x10^3/uL Nucleated RBC % 0.0 /100WBC Sodium 141 137 (135-145) mmol/L Potassium 5.1 H 5.6 H (3.5-5.0) mmol/L Chloride 109 106 (101-111) mmol/L Carbon Dioxide 25 22 (21-32) mmol/L Anion Gap 7.0 9.0 (6-13) BUN 27 H 35 H (6-20) mg/dL Creatinine 1.2 H 2.1 H (0.4-1.0) mg/dL Estimated GFR (MDRD) 45 L 24 L (>89) Glucose 174 H 126 H (70-100) mg/dL Calcium 8.3 L 8.3 L (8.5-10.3) mg/dL Nasal Screen MRSA (PCR) (NEGATIVE) 09/10/19 Range/Units 04:30 WBC (4.8-10.8) x10^3/uL RBC (4.20-5.40) 10^6/uL Hgb (12.0-16.0) g/dL Hct (37.0-47.0) % MCV (81.0-99.0) fL MCH (27.0-31.0) pg MCHC (32.0-36.0) g/dL RDW (12.0-15.0) % Plt Count (130-450) 10^3/uL MPV (7.9-10.8) fL Neut # (Auto) (1.5-6.6) 10^3/uL Lymph # (Auto) (1.5-3.5) 10^3/uL [place] # (Auto) (0.0-1.0) 10^3/uL Eos # (Auto) (0.0-0.7) 10^3/uL Baso # (Auto) (0.0-0.1) 10^3/uL Absolute Nucleated RBC x10^3/uL Nucleated RBC % /100WBC Sodium (135-145) mmol/L Potassium (3.5-5.0) mmol/L Chloride (101-111) mmol/L Carbon Dioxide (21-32) mmol/L Anion Gap (6-13) BUN (6-20) mg/dL Creatinine (0.4-1.0) mg/dL Estimated GFR (MDRD) (>89) Glucose (70-100) mg/dL Calcium (8.5-10.3) mg/dL Nasal Screen MRSA (PCR) NEGATIVE (NEGATIVE) ABX Reporting Has patient been on IV antibiotics over the past 48 hours?: Yes Sepsis Event Note (H) - Evaluation Current Stage of Sepsis: Sepsis Possible source of Sepsis: positive: Genitourinary - Sepsis Criteria Sepsis Criteria: Recorded Heart Rate greater than 90 bpm, Recorded Respiratory Rate greater than 20, 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 She was tachycardic, encephalopathic, had an elevated white count, and acute kidney injury. This continues to improve with IV antibiotics. Blood cultures have been negative to date. Urine cultures are pending. We will continue her on IV ceftriaxone and de-escalate based off of urine culture. Qualifiers: Sepsis type: sepsis due to unspecified organism Sepsis acute organ dysfunction status: with acute organ dysfunction Severe sepsis acute organ dysfunction type: encephalopathy Severe sepsis shock status: without septic shock Qualified Code(s): A41.9 - Sepsis, unspecified organism; R65.20 - Severe sepsis without septic shock; G93.40 - Encephalopathy, unspecified (2) Encephalopathy acute Impression: This is likely multifactorial in nature and secondary to a urinary tract inf ection and medications in the setting of acute kidney injury. She is now more awake and is able to communicate although she is not oriented to location, time. Her urine drug screen was positive for benzodiazepines as well as marijuana. We will continue to treat her urinary tract infection and hold her home Lyrica, Flexeril at this time. Will resume her home Lexapro. Continue to monitor her neuro status. (3) UTI (urinary tract infection) Impression: This was present on admission and was not related to a urinary catheter. Her urinalysis suggestive of infection urine cultures pending. We will continue on IV ceftriaxone and de-escalate based off cultures. (4) MAYO (acute kidney injury) Impression: Her renal injury was likely multifactorial given she was on Bactrim and was also having diarrhea and poor oral intake which likely caused a prerenal injury. Her creatinine is now down to 1.2 but not back to her baseline of 0.6. We will continue IV hydration and avoid nephrotoxic medications. Continue to monitor her renal function and urine output. (5) Chronic pain Impression: She is on multiple medications at home for her Gtppnet-Corcu-Dyqas and chronic pain. We will continue to hold her Flexeril, Lyrica given her improving encephalopathy. We will continue to hold diclofenac given her acute kidney injury. We will treat her pain with Tylenol as needed for the time being. Will likely restart Lyrica tomorrow morning. (6) Depression Impression: She is on Lexapro at home and this will be restarted. (7) Diabetes mellitus Impression: She is on Lantus and metformin at home. Her blood goes has been well controlled here with a sliding scale. We will continue her on a consistent carbohydrate diet. Continue to hold her home Lantus at this time given her current blood glucose. This will likely to be restarted over next 24 hours as her appetite improves. 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 (9) Diarrhea Impression: She was seen in emergency department about 1 week ago for diarrhea and was presumed to have C. difficile. A sample was never sent as the patient did not want to wait to have a bowel movement as it could take hours. She was started on oral vancomycin but not any further diarrhea. At this time, will discontinue her oral vancomycin and monitor her without treatment. If develops diarrhea, will check C. difficile before restarting vancomycin. Qualifiers: Diarrhea type: unspecified type Qualified Code(s): R19.7 - Diarrhea, unspecified
[2019-09-11] MEDS: CLOPIDOGREL 75 MG TABLET PO SCH (09:00)
[2019-09-11] MEDS: ENOXAPARIN 30 MG/0.3 ML SYRINGE SUBQ SCH (09:00)
[2019-09-11] MEDS: cefTRIAXone 1 GM in SODIUM CHLORIDE 0.9% MINIBAG 100 ML IV SCH (09:00)
[2019-09-11] MEDS: INSULIN ASPART 300 UNIT/3 ML PEN SUBQ SCH ×4 (09:01→21:31)
[2019-09-11] MEDS: ESCITALOPRAM 10 MG TABLET PO SCH (09:01)
[2019-09-11] MEDS: NYSTATIN POWDER 15 GM TOP SCH ×2 (09:02→21:32)
[2019-09-12] MEDS: SODIUM CHLORIDE FLUSH 0.9% 10 ML SYRINGE IVP SCH ×3 (00:40→17:17)
[2019-09-12] MEDS: ACETAMINOPHEN 325 MG TABLET PO PRN (03:49)
[2019-09-12 05:06] LABS: BASOPHILS % (AUTO) 0.3 %; EOSINOPHILS # (AUTO) 0.3 10^3/uL (0.0-0.7); EOSINOPHILS % (AUTO) 3.5 %; HGB - HEMOGLOBIN 10.6 g/dL (12.0-16.0); LYMPHOCYTES % (AUTO) 26.6 %; MEAN CORPUSCULAR HEMOGLOBIN 29.6 pg (27.0-31.0); MEAN CORPUSCULAR HGB CONC 31.6 g/dL (32.0-36.0); MEAN CORPUSCULAR VOLUME 93.6 fL (81.0-99.0); MEAN PLATELET VOLUME 10.9 fL (7.9-10.8); MONOCYTES # (AUTO) 0.6 10^3/uL (0.0-1.0); MONOCYTES % (AUTO) 7.4 %; NEUTROPHILS # (AUTO) 4.6 10^3/uL (1.5-6.6); NEUTROPHILS % (AUTO) 61.8 %; PLT - PLATELET COUNT 250 10^3/uL (130-450); RED BLOOD COUNT 3.58 10^6/uL (4.20-5.40); RED CELL DISTRIBUTION WIDTH 13.2 % (12.0-15.0); WHITE BLOOD COUNT 7.5 x10^3/uL (4.8-10.8)
[2019-09-12 05:16] LABS: CALCIUM 8.3 mg/dL (8.5-10.3); CREATININE 0.6 mg/dL (0.4-1.0)
[2019-09-12] MEDS: SODIUM CHLORIDE 0.9% 1,000 ML IV SCH ×2 (08:58→17:17)
[2019-09-12] MEDS: INSULIN ASPART 300 UNIT/3 ML PEN SUBQ SCH ×4 (08:59→21:22)
[2019-09-12] MEDS: cefTRIAXone 1 GM in SODIUM CHLORIDE 0.9% MINIBAG 100 ML IV SCH (09:00)
[2019-09-12] MEDS: NYSTATIN POWDER 15 GM TOP SCH ×2 (09:05→21:23)
[2019-09-12] MEDS: ESCITALOPRAM 10 MG TABLET PO SCH ×2 (09:05→11:08)
[2019-09-12] MEDS: CLOPIDOGREL 75 MG TABLET PO SCH ×2 (09:05→11:09)
[2019-09-12] MEDS: ENOXAPARIN 30 MG/0.3 ML SYRINGE SUBQ SCH (11:08)
--- NOTE | 2019-09-12 17:14 | PROVIDER PROGRESS NOTE ---
Subjective - Prog Note Date Prog Note Date: 09/12/19 Prog Note Time: 17:16 - Subjective Subjective: This unfortunate lady is just not rebounding from her mental status changes. While she is improved in alertness, and is having conversations where she answ ers questions, she is not oriented. On the one hand she can tell me that the left eye deviation she has is been from childbirth. But the other hand she is having a bowel movement and then finger paints her stool over everything. Blood pressure was 112 and 123 yesterday. Today she is in the 140s consistently with a one-time high of 185. NO fever. No hypoxia. She does not have a history of alcohol abuse. And her lab work does not show macrocytosis. Toxicology was positive for benzodiazepines and cannabinol AIDS but negative for met amphetamines. Current Medications - Current Medications Current Medications: Active Medications Acetaminophen (Tylenol) 650 mg PO Q4HR PRN PRN Reason: Pain 1 to 4 Last Admin: 09/12/19 03:49 Dose: 650 mg Clopidogrel Bisulfate (Plavix) 75 mg PO DAILY [facility] Last Admin: 09/12/19 11:09 Dose: 75 mg Enoxaparin Sodium (Lovenox) 30 mg SUBQ DAILY [facility] Last Admin: 09/12/19 11:08 Dose: Not Given Escitalopram Oxalate (Lexapro) 10 mg PO DAILY [facility] Last Admin: 09/12/19 11:08 Dose: 10 mg Sodium Chloride (Normal Saline 0.9%) 1,000 mls @ 125 mls/hr IV .Q8H [facility] Last Admin: 09/12/19 17:17 Dose: 125 mls/hr Ceftriaxone Sodium 1 gm/ (Sodium Chloride) 100 mls @ 200 mls/hr IV DAILY [facility] Last Infusion: 09/12/19 09:30 Dose: Infused Insulin Aspart (Novolog) 1 - 5 unit SUBQ 0800,1200,1700,2100 [facility]; Protocol Last Admin: 09/12/19 12:34 Dose: 2 unit Nystatin (Nystop) 1 applic TOP BID [facility] Last Admin: 09/12/19 09:05 Dose: 1 applic Sodium Chloride (Normal Saline Flush 0.9%) 10 ml IVP PRN PRN PRN Reason: NEEDED PER PROVIDER ORDERS Last Admin: 09/11/19 06:52 Dose: 10 ml Sodium Chloride (Normal Saline Flush 0.9%) 10 ml IVP 0100,0900,1700 [facility] Last Admin: 09/12/19 17:17 Dose: 10 ml metFORMIN [Glucophage] 1,000 mg PO BID 01/31/13 Diphenoxylate/Atropine [Lomotil] 1 each PO QID PRN 10/21/13 Rifampin [Rifadin] 300 mg PO BID 10/21/13 Clopidogrel [Plavix] 75 mg PO DAILY 09/10/19 Cyclobenzaprine HCl 5 mg PO TID PRN 09/10/[address] [Voltaren] 75 mg PO BID 09/10/19 Escitalopram [Lexapro] 10 mg PO DAILY 09/10/19 Insulin Glargine [Lantus Solostar] 40 units SUBQ QPM 09/10/19 Pregabalin [Lyrica] 100 mg PO BID 09/10/19 Solifenacin Succinate [Vesicare] 10 mg PO DAILY 09/10/19 Sulfamethox/Trimeth 800/160 [Bactrim Ds] 1 tab PO BID 09/10/19 traMADol [Ultram] 50 mg PO Q6HR PRN 09/10/19 traZODone [Desyrel] 50 mg PO QPM 09/10/19 Objective - Vital Signs/Intake & Output Reviewed Vital Signs: Yes Vital Signs: Vital Signs x48h Temp Pulse Resp BP Pulse Ox 09/12/19 15:44 36.9 C 85 20 151/88 H 96 09/12/19 14:00 37.3 C 82 21 149/75 H 94 Intake & Output: Intake & Output 09/09/19 09/10/19 09/11/19 09/12/19 23:59 23:59 23:59 23:59 Intake Total 5623.75 4919.083 1937.917 Output Total 1500 3325 2140 Balance 4123.75 1594.083 -202.083 - Objective General Appearance: positive: No acute distress, Alert Eyes Bilateral: negative: EOMI (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 negative: Stiff neck Respiratory: positive: Chest non-tender. negative: Wheezes, Rales, Rhonchi Cardiovascular: positive: Regular rate & rhythm. negative: Gallop/S4, Friction rub Abdomen: positive: Non-tender, No organomegaly, Nml bowel sounds, No distention Skin: positive: Warm, Dry Extremities: positive: Non-tender, No pedal edema Neurologic/Psychiatric: positive: Motor nml (Spontaneously sitting up, trying to get up out of bed, impulsive without focal deficits), Disoriented to person, Disoriented to place, Disoriented to time. negative: CN's nml (2-12) (left eye EOM), Mood/affect nml, Facial droop - Lab Results Fish Bones: 09/12/19 04:25 09/12/19 04:25 Other Labs: Lab Results x24hrs 09/12/19 09/12/19 09/12/19 Range/Units 11:40 07:53 04:25 WBC (4.8-10.8) x10^3/uL RBC (4.20-5.40) 10^6/uL Hgb (12.0-16.0) g/dL Hct (37.0-47.0) % MCV (81.0-99.0) fL MCH (27.0-31.0) pg MCHC (32.0-36.0) g/dL RDW (12.0-15.0) % Plt Count (130-450) 10^3/uL MPV (7.9-10.8) fL Neut # (Auto) (1.5-6.6) 10^3/uL Lymph # (Auto) (1.5-3.5) 10^3/uL Pickett # (Auto) (0.0-1.0) 10^3/uL Eos # (Auto) (0.0-0.7) 10^3/uL Baso # (Auto) (0.0-0.1) 10^3/uL Absolute Nucleated RBC x10^3/uL Nucleated RBC % /100WBC Sodium 137 (135-145) mmol/L Potassium 4.4 (3.5-5.0) mmol/L Chloride 105 (101-111) mmol/L Carbon Dioxide 24 (21-32) mmol/L Anion Gap 8.0 (6-13) BUN 13 (6-20) mg/dL Creatinine 0.6 (0.4-1.0) mg/dL Estimated GFR (MDRD) 101 (>89) Glucose 175 H (70-100) mg/dL POC Whole Bld Glucose 190 H 162 H (70 - 100) mg/dL Calcium 8.3 L (8.5-10.3) mg/dL 09/12/19 09/11/19 09/11/19 Range/Units 04:25 20:26 16:37 WBC 7.5 (4.8-10.8) x10^3/uL RBC 3.58 L (4.20-5.40) 10^6/uL Hgb 10.6 L (12.0-16.0) g/dL Hct 33.5 L (37.0-47.0) % MCV 93.6 (81.0-99.0) fL MCH 29.6 (27.0-31.0) pg MCHC 31.6 L (32.0-36.0) g/dL RDW 13.2 (12.0-15.0) % Plt Count 250 (130-450) 10^3/uL MPV 10.9 H (7.9-10.8) fL Neut # (Auto) 4.6 (1.5-6.6) 10^3/uL Lymph # (Auto) 2.0 (1.5-3.5) 10^3/uL Pickett # (Auto) 0.6 (0.0-1.0) 10^3/uL Eos # (Auto) 0.3 (0.0-0.7) 10^3/uL Baso # (Auto) 0.0 (0.0-0.1) 10^3/uL Absolute Nucleated RBC 0.00 x10^3/uL Nucleated RBC % 0.0 /100WBC Sodium (135-145) mmol/L Potassium (3.5-5.0) mmol/L Chloride (101-111) mmol/L Carbon Dioxide (21-32) mmol/L Anion Gap (6-13) BUN (6-20) mg/dL Creatinine (0.4-1.0) mg/dL Estimated GFR (MDRD) (>89) Glucose (70-100) mg/dL POC Whole Bld Glucose 197 H 162 H (70 - 100) mg/dL Calcium (8.5-10.3) mg/dL 12/13/19 12/13/19 12/12/19 Range/Units 11:53 08:03 20:12 WBC (4.8-10.8) x10^3/uL RBC (4.20-5.40) 10^6/uL Hgb (12.0-16.0) g/dL Hct (37.0-47.0) % MCV (81.0-99.0) fL MCH (27.0-31.0) pg MCHC (32.0-36.0) g/dL RDW (12.0-15.0) % Plt Count (130-450) 10^3/uL MPV (7.9-10.8) fL Neut # (Auto) (1.5-6.6) 10^3/uL Lymph # (Auto) (1.5-3.5) 10^3/uL Pickett # (Auto) (0.0-1.0) 10^3/uL Eos # (Auto) (0.0-0.7) 10^3/uL Baso # (Auto) (0.0-0.1) 10^3/uL Absolute Nucleated RBC x10^3/uL Nucleated RBC % /100WBC Sodium (135-145) mmol/L Potassium (3.5-5.0) mmol/L Chloride (101-111) mmol/L Carbon Dioxide (21-32) mmol/L Anion Gap (6-13) BUN (6-20) mg/dL Creatinine (0.4-1.0) mg/dL Estimated GFR (MDRD) (>89) Glucose (70-100) mg/dL POC Whole Bld Glucose 143 H 139 H 175 H (70 - 100) mg/dL Calcium (8.5-10.3) mg/dL 09/10/19 09/10/19 09/10/19 Range/Units 16:30 11:11 07:45 WBC (4.8-10.8) x10^3/uL RBC (4.20-5.40) 10^6/uL Hgb (12.0-16.0) g/dL Hct (37.0-47.0) % MCV (81.0-99.0) fL MCH (27.0-31.0) pg MCHC (32.0-36.0) g/dL RDW (12.0-15.0) % Plt Count (130-450) 10^3/uL MPV (7.9-10.8) fL Neut # (Auto) (1.5-6.6) 10^3/uL Lymph # (Auto) (1.5-3.5) 10^3/uL [place]ett # (Auto) (0.0-1.0) 10^3/uL Eos # (Auto) (0.0-0.7) 10^3/uL Baso # (Auto) (0.0-0.1) 10^3/uL Absolute Nucleated RBC x10^3/uL Nucleated RBC % /100WBC Sodium (135-145) mmol/L Potassium (3.5-5.0) mmol/L Chloride (101-111) mmol/L Carbon Dioxide (21-32) mmol/L Anion Gap (6-13) BUN (6-20) mg/dL Creatinine (0.4-1.0) mg/dL Estimated GFR (MDRD) (>89) Glucose (70-100) mg/dL POC Whole Bld Glucose 120 H 156 H 74 (70 - 100) mg/dL Calcium (8.5-10.3) mg/dL 09/10/19 Range/Units 02:20 WBC (4.8-10.8) x10^3/uL RBC (4.20-5.40) 10^6/uL Hgb (12.0-16.0) g/dL Hct (37.0-47.0) % MCV (81.0-99.0) fL MCH (27.0-31.0) pg MCHC (32.0-36.0) g/dL RDW (12.0-15.0) % Plt Count (130-450) 10^3/uL MPV (7.9-10.8) fL Neut # (Auto) (1.5-6.6) 10^3/uL Lymph # (Auto) (1.5-3.5) 10^3/uL Pickett # (Auto) (0.0-1.0) 10^3/uL Eos # (Auto) (0.0-0.7) 10^3/uL Baso # (Auto) (0.0-0.1) 10^3/uL Absolute Nucleated RBC x10^3/uL Nucleated RBC % /100WBC Sodium (135-145) mmol/L Potassium (3.5-5.0) mmol/L Chloride (101-111) mmol/L Carbon Dioxide (21-32) mmol/L Anion Gap (6-13) BUN (6-20) mg/dL Creatinine (0.4-1.0) mg/dL Estimated GFR (MDRD) (>89) Glucose (70-100) mg/dL POC Whole Bld Glucose 122 H (70 - 100) mg/dL Calcium (8.5-10.3) mg/dL ABX Reporting Has patient been on IV antibiotics over the past 48 hours?: Yes Sepsis Event Note (H) - Evaluation Current Stage of Sepsis: Resolved Possible source of Sepsis: positive: Genitourinary Confirmed Source and Organism (if known) of Sepsis: Klebsiella Sepsis Associated Organ Dysfunction: MAYO encephalopathy - Sepsis Criteria Sepsis Criteria: Recorded Heart Rate greater than 90 bpm, Recorded Respiratory Rate greater than 20, LIME KILN TENDER: altered consciousness (unrelated to primary neuro pathology) Assessment/Plan - Problem List (1) Encephalopathy acute Impression: While she has improved her stupor, she is not oriented. Daughter feels this is not at all her baseline. Acute cause was multifactorial in nature and secondary to a urinary tract infection and medications in the setting of acute kidney injury. Head CT done at admission compared to prior study shows a new small lac unar injury in the right globus pallidus measuring 5 mm and another small lacunar injury that has developed near the anterior limb of the left internal capsule measuring 7 mm x 5 mm. These are not acute changes. Ventricles have shown progressive enlargement compared to prior exam related to volume loss. She is now more awake and is able to communicate although she is not oriented to location, time. Her urine drug screen was positive for benzodiazepines as well as marijuana. We will continue to treat her urinary tract infection and hold her home Lyrica, Flexeril at this time. Will resume her home Lexapro. Continue to monitor her neuro status. (3) Klebsiells UTI (urinary tract infection) Impression: Sepsis was present on admission and secondary to this urinary tract infection. She was tachycardic, encephalopathic, had an elevated white count, and acute kidney injury. Resolved with IV antibiotics. Blood cultures have been negative to date. UTI was not related to a urinary catheter. She is on Rocephin IV. Day #3 dose. Klebsiella is resistant to ampicillin, tetracycline, Bactrim and intermediate to nitrofurantoin. Changed to Keflex p.o. (4) MAYO (acute kidney injury) Impression: Resolved. Creatinine:2.3> 2.2> 2.1 >1.2 >0.6 Her renal injury was likely multifactorial given she was on Bactrim and was also having diarrhea and poor oral intake which likely caused a prerenal injury. We can stop IV fluids and start to encourage p.o. (5) Chronic pain Impression: She is on multiple medications at home for her [id number] and chronic pain. We will continue to hold her Flexeril, Lyrica given her improving encephalopathy. We will continue to hold diclofenac given her acute kidney injury. We will treat her pain with Tylenol as needed for the time being. We werer going to restart Lyrica today but with disorientation, will hold off (6) Depression Impression: She is on Lexapro at home and this was restarted. (7) Diabetes mellitus Impression: She is on Lantus and metformin at home. Her blood goes has been well controlled here with a sliding scale. September 11: 139, 143, 162, 197 September 12 162, 190, 174 We will continue her on a consistent carbohydrate diet. Continue to hold her home Lantus at this time given her current blood glucose. This will likely to be restarted over next 24 hours as her appetite improves. Qualifiers: Diabetes mellitus type: type 2 Diabetes mellitus skilled nursing insulin use: with keno terminal operator use (8) Hyperkalemia Impression: This has since resolved and would like secondary to the use of Bactrim and her acute kidney injury. (9) Diarrhea Impression: She was seen in emergency department about 1 week ago for diarrhea and was presumed to have C. difficile. A sample was never sent as the patient did not want to wait to have a bowel movement as it could take hours. She was started on oral vancomycin but not any further diarrhea. At this time, will discontinue her oral vancomycin and monitor her without treatment. If develops diarrhea, will check C. difficile before restarting vancomycin. Qualifiers: Diarrhea type: unspecified type Qualified Code(s): R19.7 - Diarrhea, unspecified
[2019-09-13] MEDS: SODIUM CHLORIDE FLUSH 0.9% 10 ML SYRINGE IVP SCH ×4 (01:07→23:58)
[2019-09-13 04:51] LABS: BASOPHILS % (AUTO) 0.4 %; EOSINOPHILS # (AUTO) 0.3 10^3/uL (0.0-0.7); EOSINOPHILS % (AUTO) 3.8 %; HGB - HEMOGLOBIN 11.2 g/dL (12.0-16.0); LYMPHOCYTES # (AUTO) 2.1 10^3/uL (1.5-3.5); LYMPHOCYTES % (AUTO) 31.2 %; MEAN CORPUSCULAR HEMOGLOBIN 30.3 pg (27.0-31.0); MEAN CORPUSCULAR HGB CONC 32.6 g/dL (32.0-36.0); MEAN PLATELET VOLUME 10.9 fL (7.9-10.8); MONOCYTES # (AUTO) 0.6 10^3/uL (0.0-1.0); MONOCYTES % (AUTO) 8.3 %; NEUTROPHILS # (AUTO) 3.8 10^3/uL (1.5-6.6); NEUTROPHILS % (AUTO) 55.7 %; PLT - PLATELET COUNT 270 10^3/uL (130-450); RED CELL DISTRIBUTION WIDTH 12.8 % (12.0-15.0); WHITE BLOOD COUNT 6.8 x10^3/uL (4.8-10.8)
[2019-09-13 04:59] LABS: CALCIUM 8.5 mg/dL (8.5-10.3); CREATININE 0.6 mg/dL (0.4-1.0)
[2019-09-13] MEDS: INSULIN ASPART 300 UNIT/3 ML PEN SUBQ SCH ×4 (08:55→20:47)
[2019-09-13] MEDS: cefTRIAXone 1 GM in SODIUM CHLORIDE 0.9% MINIBAG 100 ML IV SCH (08:55)
[2019-09-13] MEDS: NYSTATIN POWDER 15 GM TOP SCH ×2 (09:02→20:48)
[2019-09-13] MEDS: CLOPIDOGREL 75 MG TABLET PO SCH (09:04)
[2019-09-13] MEDS: ENOXAPARIN 30 MG/0.3 ML SYRINGE SUBQ SCH (09:04)
[2019-09-13] MEDS: ESCITALOPRAM 10 MG TABLET PO SCH (09:04)
--- NOTE | 2019-09-13 12:10 | PROVIDER PROGRESS NOTE ---
Subjective - Prog Note Date Prog Note Date: 09/13/19 Prog Note Time: 12:06 - Subjective Subjective: While she is oriented and that she knows she is in a hospital she then follows up by telling me that this is not really hospital. That this is a "crappy" h otel that has been remodeled and made into a "creepy" hospital. She asked if I know about all the other crappy hotels that are around her that have been renovated and informs me that they are "all over". She names [facility], [facility], [place] is places that have hotels that could not make it so they got renovated into hospitals. She knows she is on [facility]. At least she gets that correct when I asked her where she was she told me "I think O'm on [facility], right". She knows she's not in [place]. But she cannot tell me why she is here. She does not remember being with her daughters. She does not remember getting slowly sick and having to come to the hospital. Current Medications - Current Medications Current Medications: Active Medications Acetaminophen (Tylenol) 650 mg PO Q4HR PRN PRN Reason: Pain 1 to 4 Last Admin: 09/12/19 03:49 Dose: 650 mg Clopidogrel Bisulfate (Plavix) 75 mg PO DAILY [facility] Last Admin: 09/13/19 09:04 Dose: 75 mg Enoxaparin Sodium (Lovenox) 30 mg SUBQ DAILY [facility] Last Admin: 09/13/19 09:04 Dose: 30 mg Escitalopram Oxalate (Lexapro) 10 mg PO DAILY [facility] Last Admin: 09/13/19 09:04 Dose: 10 mg Ceftriaxone Sodium 1 gm/ (Sodium Chloride) 100 mls @ 200 mls/hr IV DAILY [facility] Last Infusion: 09/13/19 09:40 Dose: Infused Insulin Aspart (Novolog) 1 - 5 unit SUBQ 0800,1200,1700,2100 [facility]; Protocol Last Admin: 09/13/19 11:52 Dose: 2 unit Nystatin (Nystop) 1 applic TOP BID [facility] Last Admin: 09/13/19 09:02 Dose: 1 applic Sodium Chloride (Normal Saline Flush 0.9%) 10 ml IVP PRN PRN PRN Reason: NEEDED PER PROVIDER ORDERS Last Admin: 09/11/19 06:52 Dose: 10 ml Sodium Chloride (Normal Saline Flush 0.9%) 10 ml IVP 0100,0900,1700 [facility] Last Admin: 09/13/19 09:01 Dose: 10 ml metFORMIN [Glucophage] 1,000 mg PO BID 01/31/13 Diphenoxylate/Atropine [Lomotil] 1 each PO QID PRN 10/21/13 Rifampin [Rifadin] 300 mg PO BID 10/21/13 Clopidogrel [Plavix] 75 mg PO DAILY 09/10/19 Cyclobenzaprine HCl 5 mg PO TID PRN 09/10/[address] [Voltaren] 75 mg PO BID 09/10/19 Escitalopram [Lexapro] 10 mg PO DAILY 09/10/19 Insulin Glargine [Lantus Solostar] 40 units SUBQ QPM 09/10/19 Pregabalin [Lyrica] 100 mg PO BID 09/10/19 Solifenacin Succinate [Vesicare] 10 mg PO DAILY 09/10/19 Sulfamethox/Trimeth 800/160 [Bactrim Ds] 1 tab PO BID 09/10/19 traMADol [Ultram] 50 mg PO Q6HR PRN 09/10/19 traZODone [Desyrel] 50 mg PO QPM 09/10/19 Objective - Vital Signs/Intake & Output Reviewed Vital Signs: Yes Vital Signs: Vital Signs x48h Temp Pulse Resp BP BP Pulse Ox 09/13/19 11:33 36.5 C 76 14 143/78 H 94 09/13/19 07:55 36.7 C 74 12 135/71 H 98 09/13/19 04:19 37.0 C 72 18 150/76 H 96 Intake & Output: Intake & Output 09/10/19 09/11/19 09/12/19 09/13/19 23:59 23:59 23:59 23:59 Intake Total 5623.75 4919.083 2062.917 450 Output Total 1500 3325 2990 1550 Balance 4123.75 1594.083 -927.083 -1100 - Objective General Appearance: positive: No acute distress, Alert Eyes Bilateral: positive: PERRL. negative: EOMI ENT: positive: No signs of dehydration Neck: positive: No JVD. negative: Stiff neck Respiratory: positive: Chest non-tender. negative: Wheezes, Rales, Rhonchi Cardiovascular: positive: Regular rate & rhythm. negative: Gallop/S4, Friction rub Abdomen: positive: Non-tender, No organomegaly, Nml bowel sounds, No distention Skin: positive: Warm, Dry, Pallor Extremities: positive: Full ROM Neurologic/Psychiatric: positive: Motor nml (Nonfocal generalized weakness. While she is able to roll to her side on the bed, she does not have enough strength to sit up in bed much less to stand and transfer), Disoriented to person, Disoriented to place, Disoriented to time, Weakness. negative: CN's nml (2-12) (Extraocular movement of left eye still medially deviated), Mood/affect nml - Lab Results Fish Bones: 09/13/19 04:25 09/13/19 04:25 Other Labs: Lab Results x24hrs 09/13/19 09/13/19 09/13/19 Range/Units 11:40 07:47 04:25 WBC (4.8-10.8) x10^3/uL RBC (4.20-5.40) 10^6/uL Hgb (12.0-16.0) g/dL Hct (37.0-47.0) % MCV (81.0-99.0) fL MCH (27.0-31.0) pg MCHC (32.0-36.0) g/dL RDW (12.0-15.0) % Plt Count (130-450) 10^3/uL MPV (7.9-10.8) fL Neut # (Auto) (1.5-6.6) 10^3/uL Lymph # (Auto) (1.5-3.5) 10^3/uL [place] # (Auto) (0.0-1.0) 10^3/uL Eos # (Auto) (0.0-0.7) 10^3/uL Baso # (Auto) (0.0-0.1) 10^3/uL Absolute Nucleated RBC x10^3/uL Nucleated RBC % /100WBC Sodium 139 (135-145) mmol/L Potassium 3.8 (3.5-5.0) mmol/L Chloride 104 (101-111) mmol/L Carbon Dioxide 26 (21-32) mmol/L Anion Gap 9.0 (6-13) BUN 10 (6-20) mg/dL Creatinine 0.6 (0.4-1.0) mg/dL Estimated GFR (MDRD) 101 (>89) Glucose 166 H (70-100) mg/dL POC Whole Bld Glucose 184 H 172 H (70 - 100) mg/dL Calcium 8.5 (8.5-10.3) mg/dL 09/13/19 09/12/19 Range/Units 04:25 20:42 WBC 6.8 (4.8-10.8) x10^3/uL RBC 3.70 L (4.20-5.40) 10^6/uL Hgb 11.2 L (12.0-16.0) g/dL Hct 34.4 L (37.0-47.0) % MCV 93.0 (81.0-99.0) fL MCH 30.3 (27.0-31.0) pg MCHC 32.6 (32.0-36.0) g/dL RDW 12.8 (12.0-15.0) % Plt Count 270 (130-450) 10^3/uL MPV 10.9 H (7.9-10.8) fL Neut # (Auto) 3.8 (1.5-6.6) 10^3/uL Lymph # (Auto) 2.1 (1.5-3.5) 10^3/uL [place] # (Auto) 0.6 (0.0-1.0) 10^3/uL Eos # (Auto) 0.3 (0.0-0.7) 10^3/uL Baso # (Auto) 0.0 (0.0-0.1) 10^3/uL Absolute Nucleated RBC 0.00 x10^3/uL Nucleated RBC % 0.0 /100WBC Sodium (135-145) mmol/L Potassium (3.5-5.0) mmol/L Chloride (101-111) mmol/L Carbon Dioxide (21-32) mmol/L Anion Gap (6-13) BUN (6-20) mg/dL Creatinine (0.4-1.0) mg/dL Estimated GFR (MDRD) (>89) Glucose (70-100) mg/dL POC Whole Bld Glucose 198 H (70 - 100) mg/dL Calcium (8.5-10.3) mg/dL ABX Reporting Has patient been on IV antibiotics over the past 48 hours?: Yes Sepsis Event Note (H) - Evaluation Current Stage of Sepsis: Resolved Possible source of Sepsis: positive: Genitourinary - Sepsis Criteria Sepsis Criteria: Recorded Heart Rate greater than 90 bpm, Recorded Respiratory Rate greater than 20, GARAGE HELPER: altered consciousness (unrelated to primary neuro pathology) Assessment/Plan - Problem List (1) Encephalopathy acute Impression: While she has improved her stupor, she continuing to be disoriented. Acute encephalopahty cause was multifactorial in nature and secondary to a urinary tract infection and medications in the setting of acute kidney injury. Head CT done at admission compared to prior study shows a new but not acute (when compared to old CT) small lacunar injury in the right globus pallidus measuring 5 mm and another small lacunar injury that has developed near the anterior limb of the left internal capsule measuring 7 mm x 5 mm. Ventricles have shown progressive enlargement compared to prior exam related to volume loss. She is awake and is able to communicate although she is not oriented to location, time. She would like her metformin resumed and her lyrica resumed. Her urine drug screen was positive for benzodiazepines as well as marijuana. We will continue to treat her urinary tract infection and hold her home Flexeril at this time. Will resume her home Lexapro. Continue to monitor her neuro status. She is medically stable for rehab now and hopefully her mentation will continue to clear. Needs to work with PT/OT to see what her goals will be for rehab/SNF (3) Klebsiells UTI (urinary tract infection) Impression: Sepsis was present on admission and secondary to this urinary tract infection. She was tachycardic, encephalopathic, had an elevated white count, and acute kidney injury. Resolved with IV antibiotics. Blood cultures have been negative to date. UTI was not related to a urinary catheter. She is on Rocephin IV. Day #3 dose. Klebsiella is resistant to ampicillin, tetracycline, Bactrim and intermediate to nitrofurantoin. Change to Keflex p.o. (4) MAYO (acute kidney injury) Impression: Resolved. Creatinine:2.3> 2.2> 2.1 >1.2 >0.6 Her renal injury was likely multifactorial given she was on Bactrim and was also having diarrhea and poor oral intake which likely caused a prerenal injury. We can stop IV fluids and start to encourage p.o. (5) Chronic pain Impression: She is on multiple medications at home for her [id number] and chronic pain. We will continue to hold her Flexeril given her improving encephalopathy. We will continue to hold diclofenac given her acute kidney injury. We will treat her pain with Tylenol as needed for the time being. Restart Lyrica today (6) Depression Impression: She is on Lexapro at home and this was restarted. (7) Diabetes mellitus Impression: She is on Lantus and metformin at home. Her blood goes has been well controlled here with a sliding scale. August 13: 139, 143, 162, 197 August 14: 162, 190, 174 August 15: 172, 187 We will continue her on a consistent carbohydrate diet. Start Lantus at 10 un its and gradually go up to her usual 40 if her glucose climbs. Qualifiers: Diabetes mellitus type: type 2 Diabetes mellitus usp insulin use: with manager long term care use (8) Hyperkalemia Impression: This has since resolved and would like secondary to the use of Bactrim and her acute kidney injury. (9) Diarrhea Impression: She was seen in emergency department about 1 week ago for diarrhea and was presumed to have C. difficile. A sample was never sent as the patient did not want to wait to have a bowel movement as it could take hours. She was started on oral vancomycin but not any further diarrhea. At this time, will discontinue her oral vancomycin and monitor her without treatment. If develops diarrhea, will check C. difficile before restarting vancomycin. Qualifiers: Diarrhea type: unspecified type Qualified Code(s): R19.7 - Diarrhea, unspecified
[2019-09-13] MEDS: cephALEXin 250 MG CAPSULE PO SCH ×3 (14:11→23:57)
[2019-09-13] MEDS: PREGABALIN 100 MG CAPSULE PO SCH (20:49)
[2019-09-13] MEDS: traZODone 50 MG TABLET PO SCH (20:49)
[2019-09-13] MEDS ORDERED: INSULIN GLARGINE 300 UNIT/3 ML PEN SUBQ SCH (21:00)
[2019-09-14 04:55] LABS: BASOPHILS % (AUTO) 0.5 %; EOSINOPHILS # (AUTO) 0.2 10^3/uL (0.0-0.7); HGB - HEMOGLOBIN 11.3 g/dL (12.0-16.0); LYMPHOCYTES % (AUTO) 38.8 %; MEAN CORPUSCULAR HEMOGLOBIN 30.6 pg (27.0-31.0); MEAN CORPUSCULAR VOLUME 92.7 fL (81.0-99.0); MEAN PLATELET VOLUME 10.5 fL (7.9-10.8); MONOCYTES # (AUTO) 0.7 10^3/uL (0.0-1.0); MONOCYTES % (AUTO) 8.9 %; NEUTROPHILS # (AUTO) 3.8 10^3/uL (1.5-6.6); NEUTROPHILS % (AUTO) 48.4 %; PLT - PLATELET COUNT 273 10^3/uL (130-450); RED BLOOD COUNT 3.69 10^6/uL (4.20-5.40); RED CELL DISTRIBUTION WIDTH 13.1 % (12.0-15.0); WHITE BLOOD COUNT 7.8 x10^3/uL (4.8-10.8)
[2019-09-14 05:08] LABS: CALCIUM 8.8 mg/dL (8.5-10.3); CREATININE 0.6 mg/dL (0.4-1.0)
[2019-09-14] MEDS: cephALEXin 250 MG CAPSULE PO SCH ×4 (05:47→23:50)
[2019-09-14] MEDS: ENOXAPARIN 40 MG/0.4 ML SYRINGE SUBQ SCH (10:12)
[2019-09-14] MEDS: PREGABALIN 100 MG CAPSULE PO SCH ×2 (10:12→21:10)
[2019-09-14] MEDS: CLOPIDOGREL 75 MG TABLET PO SCH (10:12)
[2019-09-14] MEDS: ESCITALOPRAM 10 MG TABLET PO SCH (10:12)
[2019-09-14] MEDS: INSULIN ASPART 300 UNIT/3 ML PEN SUBQ SCH ×5 (10:13→21:09)
[2019-09-14] MEDS: NYSTATIN POWDER 15 GM TOP SCH ×2 (10:13→21:10)
[2019-09-14] MEDS: SODIUM CHLORIDE FLUSH 0.9% 10 ML SYRINGE IVP SCH ×3 (10:13→23:52)
--- NOTE | 2019-09-14 15:56 | PROVIDER PROGRESS NOTE ---
Subjective - Prog Note Date Prog Note Date: 09/14/19 Prog Note Time: 15:50 - Subjective Subjective: This patient is definitely much more awake. Verbal. But still not what I would call oriented. She knows she is in a hospital. Still needs to be prompted that it is [facility]. She pulled out her IV yet 1 more time. Says that she did not need it anymore because the aide that helped her last night was able to take of the "piece of glass out of her arm" so that she did not need IV anymore. She refuses to work with physical therapy. States that she is no longer weightbearing and has not been weightbearing for years. In addition, Unfortunately, both daughters are not getting along with each other. patient came from [place] to stay with 1 daughter, that daughter could no longer take care of her, and she went to go live with another daughter. She stayed with that daughter for 2 days and then was brought to the emergency room. That daug hter, Corry, also states she cannot take care of mom at her current needs. I was able to figure out, from the patient and older daughter that she was living at [facility] assisted living facility in [place], [place]. That facility ([phone]) let me know that the patient was a patient at [facility] in [place], [place]. [phone]. I was able to get some records from that clinic. The patient is needing quite a bit of help living at home because she relies on being in a wheelchair. And her caregiver in 2016 and then her . Both [facility] staff and office staff from her doctor's office state that the patient is able to stand and weight-bear when she pivots and transfers out of her wheelchair. At the Assisted living facility she did need help with bathing, and grooming. She needed supervision with dressing. But she was total help with ambulating and transferring. She was independent with eating. She had no pressure sores. She did not require restraints. Here she is stating that she is a total nonweightbearing person. And she needs to be transferred with a lift. She was taken out of the [facility] at the end of july and has been here a little over 2 weeks. There is no note of a recent surgery. Current Medications - Current Medications Current Medications: Active Medications Acetaminophen (Tylenol) 650 mg PO Q4HR PRN PRN Reason: Pain 1 to 4 Last Admin: 09/12/19 03:49 Dose: 650 mg Cephalexin (Keflex) 500 mg PO Q6HR [facility] Last Admin: 09/14/19 12:03 Dose: 500 mg Clopidogrel Bisulfate (Plavix) 75 mg PO DAILY [facility] Last Admin: 09/14/19 10:12 Dose: 75 mg Enoxaparin Sodium (Lovenox) 40 mg SUBQ DAILY [facility] Last Admin: 09/14/19 10:12 Dose: 40 mg Escitalopram Oxalate (Lexapro) 10 mg PO DAILY [facility] Last Admin: 09/14/19 10:12 Dose: 10 mg Insulin Aspart (Novolog) 1 - 5 unit SUBQ 0800,1200,1700,2100 [facility]; Protocol Last Admin: 09/14/19 12:04 Dose: 3 unit Insulin Glargine (Lantus Solostar) 12 unit SUBQ QPM [facility] Nystatin (Nystop) 1 applic TOP BID [facility] Last Admin: 09/14/19 10:13 Dose: 1 applic Pregabalin (Lyrica) 100 mg PO BID [facility] Last Admin: 09/14/19 10:12 Dose: 100 mg Sodium Chloride (Normal Saline Flush 0.9%) 10 ml IVP PRN PRN PRN Reason: NEEDED PER PROVIDER ORDERS Last Admin: 09/11/19 06:52 Dose: 10 ml Sodium Chloride (Normal Saline Flush 0.9%) 10 ml IVP 0100,0900,1700 [facility] Last Admin: 09/14/19 10:13 Dose: 10 ml Trazodone HCl (Desyrel) 50 mg PO QPM [facility] Last Admin: 09/13/19 20:49 Dose: 50 mg metFORMIN [Glucophage] 1,000 mg PO BID 01/31/13 Diphenoxylate/Atropine [Lomotil] 1 each PO QID PRN 10/21/13 Rifampin [Rifadin] 300 mg PO BID 10/21/13 Clopidogrel [Plavix] 75 mg PO DAILY 09/10/19 Cyclobenzaprine HCl 5 mg PO TID PRN 09/10/[address] [Voltaren] 75 mg PO BID 09/10/19 Escitalopram [Lexapro] 10 mg PO DAILY 09/10/19 Insulin Glargine [Lantus Solostar] 40 units SUBQ QPM 09/10/19 Pregabalin [Lyrica] 100 mg PO BID 09/10/19 Solifenacin Succinate [Vesicare] 10 mg PO DAILY 09/10/19 Sulfamethox/Trimeth 800/160 [Bactrim Ds] 1 tab PO BID 09/10/19 traMADol [Ultram] 50 mg PO Q6HR PRN 09/10/19 traZODone [Desyrel] 50 mg PO QPM 09/10/19 Objective - Vital Signs/Intake & Output Reviewed Vital Signs: Yes Vital Signs: Vital Signs x48h Temp Pulse Resp BP Pulse Ox 09/14/19 08:00 36.5 C 73 20 152/86 H 94 Intake & Output: Intake & Output 09/11/19 09/12/19 09/13/19 09/14/19 23:59 23:59 23:59 23:59 Intake Total 4919.083 2062.917 1830 1260 Output Total 3325 2990 2430 1150 Balance 1594.083 -927.083 -600 110 - Objective General Appearance: positive: No acute distress, Alert, Other (5 foot 5 inch white female who is 106 kg, may be partially deaf because she speaks in a very loud voice.) Eyes Bilateral: positive: PERRL, EOMI ENT: positive: Other (Partially edentulous) Neck: positive: No JVD. negative: Stiff neck Respiratory: positive: Chest non-tender. negative: Wheezes, Rales, Rhonchi Cardiovascular: positive: Regular rate & rhythm, Systolic murmur. negative: Gallop/S4, Friction rub Abdomen: positive: Non-tender, No organomegaly, Nml bowel sounds, No distention Skin: positive: Warm, Dry Extremities: positive: Other (She has multiple scars on her legs starting on her hips all the way down to her ankles. Hips are tender over trochaners. Right ankle is turned inward and outer edge of foot w callus and eschar, small black area.) Neurologic/Psychiatric: positive: CN's nml (2-12), Disoriented to place, Disoriented to time. negative: Motor nml - Lab Results Fish Bones: 09/14/19 04:45 12/16/19 04:45 Other Labs: Lab Results x24hrs 09/14/19 09/14/19 09/14/19 Range/Units 11:24 08:02 04:45 WBC (4.8-10.8) x10^3/uL RBC (4.20-5.40) 10^6/uL Hgb (12.0-16.0) g/dL Hct (37.0-47.0) % MCV (81.0-99.0) fL MCH (27.0-31.0) pg MCHC (32.0-36.0) g/dL RDW (12.0-15.0) % Plt Count (130-450) 10^3/uL MPV (7.9-10.8) fL Neut # (Auto) (1.5-6.6) 10^3/uL Lymph # (Auto) (1.5-3.5) 10^3/uL [place] # (Auto) (0.0-1.0) 10^3/uL Eos # (Auto) (0.0-0.7) 10^3/uL Baso # (Auto) (0.0-0.1) 10^3/uL Absolute Nucleated RBC x10^3/uL Nucleated RBC % /100WBC Sodium 141 (135-145) mmol/L Potassium 4.0 (3.5-5.0) mmol/L Chloride 108 (101-111) mmol/L Carbon Dioxide 25 (21-32) mmol/L Anion Gap 8.0 (6-13) BUN 17 (6-20) mg/dL Creatinine 0.6 (0.4-1.0) mg/dL Estimated GFR (MDRD) 101 (>89) Glucose 187 H (70-100) mg/dL POC Whole Bld Glucose 232 H 171 H (70 - 100) mg/dL Calcium 8.8 (8.5-10.3) mg/dL 09/14/19 09/13/19 09/13/19 Range/Units 04:45 20:39 17:03 WBC 7.8 (4.8-10.8) x10^3/uL RBC 3.69 L (4.20-5.40) 10^6/uL Hgb 11.3 L (12.0-16.0) g/dL Hct 34.2 L (37.0-47.0) % MCV 92.7 (81.0-99.0) fL MCH 30.6 (27.0-31.0) pg MCHC 33.0 (32.0-36.0) g/dL RDW 13.1 (12.0-15.0) % Plt Count 273 (130-450) 10^3/uL MPV 10.5 (7.9-10.8) fL Neut # (Auto) 3.8 (1.5-6.6) 10^3/uL Lymph # (Auto) 3.0 (1.5-3.5) 10^3/uL [place] # (Auto) 0.7 (0.0-1.0) 10^3/uL Eos # (Auto) 0.2 (0.0-0.7) 10^3/uL Baso # (Auto) 0.0 (0.0-0.1) 10^3/uL Absolute Nucleated RBC 0.00 x10^3/uL Nucleated RBC % 0.0 /100WBC Sodium (135-145) mmol/L Potassium (3.5-5.0) mmol/L Chloride (101-111) mmol/L Carbon Dioxide (21-32) mmol/L Anion Gap (6-13) BUN (6-20) mg/dL Creatinine (0.4-1.0) mg/dL Estimated GFR (MDRD) (>89) Glucose (70-100) mg/dL POC Whole Bld Glucose 192 H 209 H (70 - 100) mg/dL Calcium (8.5-10.3) mg/dL ABX Reporting Has patient been on IV antibiotics over the past 48 hours?: Yes Sepsis Event Note (H) - Evaluation Current Stage of Sepsis: Resolved Possible source of Sepsis: positive: Genitourinary - Sepsis Criteria Sepsis Criteria: Recorded Heart Rate greater than 90 bpm, Recorded Respiratory Rate greater than 20, [employer]M DEVELOPER: altered consciousness (unrelated to primary neuro pathology) Assessment/Plan - Problem List (1) Encephalopathy acute Impression: While she has improved her stupor, she continued to be disoriented. Today better but stilll a little off. Acute encephalopahty cause was multifactorial in nature and secondary to a urinary tract infection and medications in the setting of acute kidney injury. Head CT done at admission compared to prior study shows a new but not acute (when compared to old CT) small lacunar injury in the right globus pallidus measuring 5 mm and another small lacunar injury that has developed near the anterior limb of the left internal capsule measuring 7 mm x 5 mm. Ventricles have shown progressive enlargement compared to prior exam related to volume loss. She is awake and is able to communicate but gets events incorrect or confabulates. She would like her metformin resumed and her lyrica resumed. Her urine drug screen was positive for benzodiazepines as well as marijuana. We will continue to treat her urinary tract infection and hold her home Flexeril at this time. Will resume her home Lexapro. Continue to monitor her neuro status. She is medically stable for rehab now and hopefully her mentation will continue to clear. Needs to work with PT/OT to see what her goals will be for rehab/SNF (3) Klebsiells UTI (urinary tract infection) Impression: Sepsis was present on admission and secondary to this urinary tract infection. She was tachycardic, encephalopathic, had an elevated white count, and acute ki dney injury. Resolved with IV antibiotics. Blood cultures have been negative to date. UTI was not related to a urinary catheter. She is on Rocephin IV. Day #3 dose. Klebsiella is resistant to ampicillin, tetracycline, Bactrim and intermediate to nitrofurantoin. Change to Keflex p.o. Day #2, plan for 2 more days then done. (4) MAYO (acute kidney injury) Impression: Resolved. Creatinine:2.3> 2.2> 2.1 >1.2 >0.6 Her renal injury was likely multifactorial given she was on Bactrim and was also having diarrhea and poor oral intake which likely caused a prerenal injury. We stopped IV fluids and no intake is only po. (5) Chronic pain Impression: She is on multiple medications at home for her [id number] and chronic pain. We will continue to hold her Flexeril given her improving encephalopathy. We will continue to hold diclofenac given her acute kidney injury. We will treat her pain with Tylenol as needed for the time being. Restart Lyrica 09/13. (6) Depression Impression: She is on Lexapro at home and this was restarted. (7) Diabetes mellitus Impression: She is on Lantus and metformin at home. Her blood goes has been well controlled here with a sliding scale. September 11: 139, 143, 162, 197 August 14: 162, 190, 174 August 15: 172, 187 August 16: 232, 207 We will continue her on a consistent carbohydrate diet. Started Lantus at 10 units and gradually go up to her usual 40 if her glucose climbs. Today will increase to 12 units. Qualifiers: Diabetes mellitus type: type 2 Diabetes mellitus senior care insulin use: with senior care use (8) Hyperkalemia Impression: This has since resolved and would like secondary to the use of Bactrim and her acute kidney injury. (9) Diarrhea Impression: She was seen in emergency department about 1 week ago for diarrhea and was presumed to have C. difficile. A sample was never sent as the patient did not want to wait to have a bowel movement as it could take hours. She was started on oral vancomycin but not any further diarrhea. At this time, will discontinue her oral vancomycin and monitor her without treatment. If develops diarrhea, will check C. difficile before restarting vancomycin. Qualifiers: Diarrhea type: unspecified type Qualified Code(s): R19.7 - Diarrhea, unspecified
[2019-09-14] MEDS: INSULIN GLARGINE 300 UNIT/3 ML PEN SUBQ SCH (21:09)
[2019-09-14] MEDS: traZODone 50 MG TABLET PO SCH (21:10)
[2019-09-14] MEDS: ACETAMINOPHEN 325 MG TABLET PO PRN (22:28)
[2019-09-15] MEDS: cephALEXin 250 MG CAPSULE PO SCH ×4 (06:31→23:48)
[2019-09-15] MEDS ORDERED: CYCLOBENZAPRINE 10 MG TABLET PO PRN (07:37)
[2019-09-15 08:25] LABS: CALCIUM 8.5 mg/dL (8.5-10.3); CREATININE 0.5 mg/dL (0.4-1.0); MAGNESIUM 1.7 mg/dL (1.7-2.8)
[2019-09-15] MEDS: CLOPIDOGREL 75 MG TABLET PO SCH (08:40)
[2019-09-15] MEDS: ESCITALOPRAM 10 MG TABLET PO SCH (08:40)
[2019-09-15] MEDS: ENOXAPARIN 40 MG/0.4 ML SYRINGE SUBQ SCH (08:40)
[2019-09-15] MEDS: PREGABALIN 100 MG CAPSULE PO SCH ×2 (08:40→21:07)
[2019-09-15] MEDS: SACCHAROMYCES BOULARDII 250 MG CAPSULE PO SCH ×2 (08:40→16:53)
[2019-09-15] MEDS: INSULIN ASPART 300 UNIT/3 ML PEN SUBQ SCH ×4 (08:52→20:49)
[2019-09-15] MEDS: SOLIFENACIN SUCCINATE 10 MG PO SCH (08:55)
[2019-09-15] MEDS: SODIUM CHLORIDE FLUSH 0.9% 10 ML SYRINGE IVP SCH ×3 (08:55→23:49)
[2019-09-15] MEDS: NYSTATIN POWDER 15 GM TOP SCH ×2 (08:55→20:48)
[2019-09-15 09:13] LABS: BASOPHILS % (AUTO) 0.4 %; EOSINOPHILS # (AUTO) 0.2 10^3/uL (0.0-0.7); EOSINOPHILS % (AUTO) 3.3 %; HGB - HEMOGLOBIN 11.8 g/dL (12.0-16.0); LYMPHOCYTES # (AUTO) 2.4 10^3/uL (1.5-3.5); LYMPHOCYTES % (AUTO) 32.6 %; MEAN CORPUSCULAR HEMOGLOBIN 29.6 pg (27.0-31.0); MEAN CORPUSCULAR HGB CONC 31.3 g/dL (32.0-36.0); MEAN CORPUSCULAR VOLUME 94.5 fL (81.0-99.0); MEAN PLATELET VOLUME 10.5 fL (7.9-10.8); MONOCYTES # (AUTO) 0.6 10^3/uL (0.0-1.0); MONOCYTES % (AUTO) 8.5 %; NEUTROPHILS % (AUTO) 54.7 %; PLT - PLATELET COUNT 284 10^3/uL (130-450); RED BLOOD COUNT 3.99 10^6/uL (4.20-5.40); RED CELL DISTRIBUTION WIDTH 13.6 % (12.0-15.0); WHITE BLOOD COUNT 7.4 x10^3/uL (4.8-10.8)
--- NOTE | 2019-09-15 11:54 | PROVIDER PROGRESS NOTE ---
Subjective - Prog Note Date Prog Note Date: 09/15/19 - Subjective Pt reports feeling: Improved Subjective: pt is comfortably stay in the chair. she did not have any complaints at this time. pt is alert and oriented to her self, location but not time. Current Medications - Current Medications Current Medications: Active Medications Acetaminophen (Tylenol) 650 mg PO Q4HR PRN PRN Reason: Pain 1 to 4 Last Admin: 09/14/19 22:28 Dose: 650 mg Cephalexin (Keflex) 500 mg PO Q6HR [facility] Last Admin: 09/15/19 06:31 Dose: 500 mg Clopidogrel Bisulfate (Plavix) 75 mg PO DAILY [facility] Last Admin: 09/15/19 08:40 Dose: 75 mg Cyclobenzaprine HCl (Flexeril) 5 mg PO TID PRN PRN Reason: Spasms Enoxaparin Sodium (Lovenox) 40 mg SUBQ DAILY [facility] Last Admin: 09/15/19 08:40 Dose: 40 mg Escitalopram Oxalate (Lexapro) 10 mg PO DAILY [facility] Last Admin: 09/15/19 08:40 Dose: 10 mg Insulin Aspart (Novolog) 1 - 9 unit SUBQ 0800,1200,1700,2100 [facility]; Protocol Last Admin: 09/15/19 08:52 Dose: 1 unit Insulin Glargine (Lantus Solostar) 12 unit SUBQ QPM [facility] Last Admin: 09/14/19 21:09 Dose: 12 unit Nystatin (Nystop) 1 applic TOP BID [facility] Last Admin: 09/15/19 08:55 Dose: 1 applic Patient Own Med ( Solifenacin Succinate [Vesicare] 10 Mg) 1 each PO DAILY [facility] Last Admin: 09/15/19 08:55 Dose: Not Given Pregabalin (Lyrica) 100 mg PO BID [facility] Last Admin: 09/15/19 08:40 Dose: 100 mg Saccharomyces Boulardii (Florastor) 250 mg PO BIDWM [facility] Last Admin: 09/15/19 08:40 Dose: 250 mg Sodium Chloride (Normal Saline Flush 0.9%) 10 ml IVP PRN PRN PRN Reason: NEEDED PER PROVIDER ORDERS Last Admin: 09/11/19 06:52 Dose: 10 ml Sodium Chloride (Normal Saline Flush 0.9%) 10 ml IVP 0100,0900,1700 [facility] Last Admin: 09/15/19 08:55 Dose: 10 ml Trazodone HCl (Desyrel) 50 mg PO QPM [facility] Last Admin: 09/14/19 21:10 Dose: 50 mg metFORMIN [Glucophage] 1,000 mg PO BID 01/31/13 Diphenoxylate/Atropine [Lomotil] 1 each PO QID PRN 10/21/13 Rifampin [Rifadin] 300 mg PO BID 10/21/13 Clopidogrel [Plavix] 75 mg PO DAILY 09/10/19 Cyclobenzaprine HCl 5 mg PO TID PRN 09/10/[address] [Voltaren] 75 mg PO BID 09/10/19 Escitalopram [Lexapro] 10 mg PO DAILY 09/10/19 Insulin Glargine [Lantus Solostar] 40 units SUBQ QPM 09/10/19 Pregabalin [Lyrica] 100 mg PO BID 09/10/19 Solifenacin Succinate [Vesicare] 10 mg PO DAILY 09/10/19 Sulfamethox/Trimeth 800/160 [Bactrim Ds] 1 tab PO BID 09/10/19 traMADol [Ultram] 50 mg PO Q6HR PRN 09/10/19 traZODone [Desyrel] 50 mg PO QPM 09/10/19 Objective - Vital Signs/Intake & Output Vital Signs: Vital Signs x48h Temp Pulse Resp BP Pulse Ox 09/15/19 08:00 36.6 C 84 18 142/77 H 97 Intake & Output: Intake & Output 09/12/19 09/13/19 09/14/19 09/15/19 23:59 23:59 23:59 23:59 Intake Total 2062.917 1830 2160 400 Output Total 2990 2430 1500 500 Balance -927.083 -600 660 -100 - Objective General Appearance: positive: No acute distress, Alert. negative: Lethargic Eyes Bilateral: positive: Normal inspection, PERRL, EOMI, No lid inflammation ENT: positive: ENT inspection nml, Pharynx nml, No signs of dehydration. negative: Purulent nasal drainage, Dry mucous membranes Neck: positive: Nml inspection, Thyroid nml, No JVD, Trachea midline. negative: Thyromegaly, Lymphadenopathy (R), Lymphadenopathy (L), Stiff neck, Tracheal deviation Respiratory: positive: Chest non-tender, No respiratory distress, Breath sounds nml. negative: Wheezes, Rales, Rhonchi Cardiovascular: positive: Regular rate & rhythm, No murmur, No gallop. negative: Irregularly irregular, Extrasystoles, Tachycardia, Bradycardia, JVD present, Systolic murmur, Diastolic murmur Peripheral Pulses: 2+ Radial (R), 2+ Radial (L), 2+ Dorsalis pedis (R), 2+ Dorsalis pedis (L) Abdomen: positive: Non-tender, No organomegaly, Nml bowel sounds, No distention. negative: Tenderness, Guarding, Rebound Back: positive: Nml inspection. negative: CVA tenderness (R), CVA tenderness (L) Skin: positive: Color nml, No rash, Warm, Dry. negative: Cyanosis, Diaphoresis, Pallor Extremities: positive: Non-tender. negative: Calf tenderness, Maria Luz's sign/cords Neurologic/Psychiatric: positive: Sensation nml. negative: Weakness, Sensory loss, Facial droop, Slurred/abnml speech, Depressed mood/affect - Lab Results Fish Bones: 09/15/19 08:09 09/15/19 08:09 Other Labs: Lab Results x24hrs 09/15/19 09/15/19 09/15/19 Range/Units 11:26 08:09 08:09 WBC 7.4 (4.8-10.8) x10^3/uL RBC 3.99 L (4.20-5.40) 10^6/uL Hgb 11.8 L (12.0-16.0) g/dL Hct 37.7 (37.0-47.0) % MCV 94.5 (81.0-99.0) fL MCH 29.6 (27.0-31.0) pg MCHC 31.3 L (32.0-36.0) g/dL RDW 13.6 (12.0-15.0) % Plt Count 284 (130-450) 10^3/uL MPV 10.5 (7.9-10.8) fL Neut # (Auto) 4.0 (1.5-6.6) 10^3/uL Lymph # (Auto) 2.4 (1.5-3.5) 10^3/uL [place] # (Auto) 0.6 (0.0-1.0) 10^3/uL Eos # (Auto) 0.2 (0.0-0.7) 10^3/uL Baso # (Auto) 0.0 (0.0-0.1) 10^3/uL Absolute Nucleated RBC 0.00 x10^3/uL Nucleated RBC % 0.0 /100WBC Sodium 141 (135-145) mmol/L Potassium 4.0 (3.5-5.0) mmol/L Chloride 107 (101-111) mmol/L Carbon Dioxide 25 (21-32) mmol/L Anion Gap 9.0 (6-13) BUN 24 H (6-20) mg/dL Creatinine 0.5 (0.4-1.0) mg/dL Estimated GFR (MDRD) 125 (>89) Glucose 172 H (70-100) mg/dL POC Whole Bld Glucose 205 H (70 - 100) mg/dL Calcium 8.5 (8.5-10.3) mg/dL Magnesium 1.7 (1.7-2.8) mg/dL 09/14/19 09/14/19 Range/Units 20:51 16:40 WBC (4.8-10.8) x10^3/uL RBC (4.20-5.40) 10^6/uL Hgb (12.0-16.0) g/dL Hct (37.0-47.0) % MCV (81.0-99.0) fL MCH (27.0-31.0) pg MCHC (32.0-36.0) g/dL RDW (12.0-15.0) % Plt Count (130-450) 10^3/uL MPV (7.9-10.8) fL Neut # (Auto) (1.5-6.6) 10^3/uL Lymph # (Auto) (1.5-3.5) 10^3/uL [place] # (Auto) (0.0-1.0) 10^3/uL Eos # (Auto) (0.0-0.7) 10^3/uL Baso # (Auto) (0.0-0.1) 10^3/uL Absolute Nucleated RBC x10^3/uL Nucleated RBC % /100WBC Sodium (135-145) mmol/L Potassium (3.5-5.0) mmol/L Chloride (101-111) mmol/L Carbon Dioxide (21-32) mmol/L Anion Gap (6-13) BUN (6-20) mg/dL Creatinine (0.4-1.0) mg/dL Estimated GFR (MDRD) (>89) Glucose (70-100) mg/dL POC Whole Bld Glucose 213 H 207 H (70 - 100) mg/dL Calcium (8.5-10.3) mg/dL Magnesium (1.7-2.8) mg/dL ABX Reporting Has patient been on IV antibiotics over the past 48 hours?: Yes Sepsis Event Note (H) - Evaluation Current Stage of Sepsis: Resolved Possible source of Sepsis: positive: Genitourinary - Sepsis Criteria Sepsis Criteria: Recorded Heart Rate greater than 90 bpm, Recorded Respiratory Rate greater than 20, INSURANCE ADMINISTRATIVE ASSISTANT: altered consciousness (unrelated to primary neuro pathology) Assessment/Plan - Problem List (1) Encephalopathy acute Impression: great improved today. pt is alert and oriented to herself and location but not time yet. Head CT done at admission compared to prior study shows a new but not acute (when compared to old CT) small lacunar injury in the right globus pallidu s measuring 5 mm and another small lacunar injury that has developed near the anterior limb of the left internal capsule measuring 7 mm x 5 mm. Ventricles have shown progressive enlargement compared to prior exam related to volume loss. continue PT/OT to see what her goals will be for rehab/SNF (3) Klebsiells UTI (urinary tract infection) pt was treated with UTI for 5 days, continue another 2 days with Keflex p.o. Day #2, plan for 2 more days then done. (4) MAYO (acute kidney injury) Impression: Resolved. creatinine is 0.5 (5) Chronic pain Impression: stable, continue to treat her pain with Tylenol as needed for the time being. Restart Lyrica 09/13. (6) Depression Impression: stable, continue Lexapro as home meds (7) Diabetes mellitus better controlled glucose level. continue lantus 12 units, slide scale, ACHS and hypoglycemia protocol (8) Hyperkalemia Impression: resolved and it was likely secondary to the use of Bactrim and her acute kidney injury. (9) Diarrhea Impression: stable, add Florastor since pt is on antibiotics for UTI.
[2019-09-15] MEDS: INSULIN GLARGINE 300 UNIT/3 ML PEN SUBQ SCH (20:49)
[2019-09-15] MEDS: traZODone 50 MG TABLET PO SCH (21:07)
[2019-09-16 05:01] LABS: BASOPHILS % (AUTO) 0.3 %; EOSINOPHILS # (AUTO) 0.2 10^3/uL (0.0-0.7); EOSINOPHILS % (AUTO) 2.7 %; HGB - HEMOGLOBIN 10.9 g/dL (12.0-16.0); LYMPHOCYTES # (AUTO) 3.1 10^3/uL (1.5-3.5); LYMPHOCYTES % (AUTO) 36.2 %; MEAN CORPUSCULAR HEMOGLOBIN 30.9 pg (27.0-31.0); MEAN CORPUSCULAR HGB CONC 32.2 g/dL (32.0-36.0); MEAN CORPUSCULAR VOLUME 95.8 fL (81.0-99.0); MEAN PLATELET VOLUME 10.7 fL (7.9-10.8); MONOCYTES # (AUTO) 0.7 10^3/uL (0.0-1.0); MONOCYTES % (AUTO) 8.6 %; NEUTROPHILS # (AUTO) 4.4 10^3/uL (1.5-6.6); NEUTROPHILS % (AUTO) 51.6 %; PLT - PLATELET COUNT 277 10^3/uL (130-450); RED BLOOD COUNT 3.53 10^6/uL (4.20-5.40); RED CELL DISTRIBUTION WIDTH 13.5 % (12.0-15.0); WHITE BLOOD COUNT 8.6 x10^3/uL (4.8-10.8)
[2019-09-16 05:07] LABS: CALCIUM 8.9 mg/dL (8.5-10.3); CREATININE 0.6 mg/dL (0.4-1.0)
[2019-09-16] MEDS: cephALEXin 250 MG CAPSULE PO SCH ×4 (06:24→23:58)
[2019-09-16] MEDS: INSULIN ASPART 300 UNIT/3 ML PEN SUBQ SCH ×4 (08:43→20:49)
[2019-09-16] MEDS: CLOPIDOGREL 75 MG TABLET PO SCH (08:43)
[2019-09-16] MEDS: SACCHAROMYCES BOULARDII 250 MG CAPSULE PO SCH ×2 (08:43→17:10)
[2019-09-16] MEDS: ENOXAPARIN 40 MG/0.4 ML SYRINGE SUBQ SCH (08:44)
[2019-09-16] MEDS: PREGABALIN 100 MG CAPSULE PO SCH ×2 (08:44→20:48)
[2019-09-16] MEDS: SODIUM CHLORIDE FLUSH 0.9% 10 ML SYRINGE IVP SCH ×2 (08:44→17:10)
[2019-09-16] MEDS: NYSTATIN POWDER 15 GM TOP SCH ×2 (08:45→20:52)
[2019-09-16] MEDS: SOLIFENACIN SUCCINATE 10 MG PO SCH (08:46)
[2019-09-16] MEDS: ESCITALOPRAM 10 MG TABLET PO SCH (08:49)
--- NOTE | 2019-09-16 10:42 | PROVIDER PROGRESS NOTE ---
Subjective - Prog Note Date Prog Note Date: 09/16/19 - Subjective Pt reports feeling: Improved Subjective: pt is alert and oriented plus 3. she denies complaints. she report she ate the whole breakfast. pt is ready for d/c. pt is pending for placement. Current Medications - Current Medications Current Medications: Active Medications Acetaminophen (Tylenol) 650 mg PO Q4HR PRN PRN Reason: Pain 1 to 4 Last Admin: 09/14/19 22:28 Dose: 650 mg Cephalexin (Keflex) 500 mg PO Q6HR [facility] Last Admin: 09/16/19 06:24 Dose: 500 mg Clopidogrel Bisulfate (Plavix) 75 mg PO DAILY [facility] Last Admin: 09/16/19 08:43 Dose: 75 mg Cyclobenzaprine HCl (Flexeril) 5 mg PO TID PRN PRN Reason: Spasms Enoxaparin Sodium (Lovenox) 40 mg SUBQ DAILY [facility] Last Admin: 09/16/19 08:44 Dose: 40 mg Escitalopram Oxalate (Lexapro) 10 mg PO DAILY [facility] Last Admin: 09/16/19 08:49 Dose: 10 mg Insulin Aspart (Novolog) 1 - 9 unit SUBQ 0800,1200,1700,2100 [facility]; Protocol Last Admin: 09/16/19 08:43 Dose: Not Given Insulin Glargine (Lantus Solostar) 12 unit SUBQ QPM [facility] Last Admin: 09/15/19 20:49 Dose: 12 unit Nystatin (Nystop) 1 applic TOP BID [facility] Last Admin: 09/16/19 08:45 Dose: 1 applic Patient Own Med ( Solifenacin Succinate [Vesicare] 10 Mg) 1 each PO DAILY [facility] Last Admin: 09/16/19 08:46 Dose: Not Given Pregabalin (Lyrica) 100 mg PO BID [facility] Last Admin: 09/16/19 08:44 Dose: 100 mg Saccharomyces Boulardii (Florastor) 250 mg PO BIDWM [facility] Last Admin: 09/16/19 08:43 Dose: 250 mg Sodium Chloride (Normal Saline Flush 0.9%) 10 ml IVP PRN PRN PRN Reason: NEEDED PER PROVIDER ORDERS Last Admin: 09/11/19 06:52 Dose: 10 ml Sodium Chloride (Normal Saline Flush 0.9%) 10 ml IVP 0100,0900,1700 [facility] Last Admin: 09/16/19 08:44 Dose: 10 ml Trazodone HCl (Desyrel) 50 mg PO QPM [facility] Last Admin: 09/15/19 21:07 Dose: 50 mg metFORMIN [Glucophage] 1,000 mg PO BID 01/31/13 Diphenoxylate/Atropine [Lomotil] 1 each PO QID PRN 10/21/13 Rifampin [Rifadin] 300 mg PO BID 10/21/13 Clopidogrel [Plavix] 75 mg PO DAILY 09/10/19 Cyclobenzaprine HCl 5 mg PO TID PRN 09/10/[address] [Voltaren] 75 mg PO BID 09/10/19 Escitalopram [Lexapro] 10 mg PO DAILY 09/10/19 Insulin Glargine [Lantus Solostar] 40 units SUBQ QPM 09/10/19 Pregabalin [Lyrica] 100 mg PO BID 09/10/19 Solifenacin Succinate [Vesicare] 10 mg PO DAILY 09/10/19 Sulfamethox/Trimeth 800/160 [Bactrim Ds] 1 tab PO BID 09/10/19 traMADol [Ultram] 50 mg PO Q6HR PRN 09/10/19 traZODone [Desyrel] 50 mg PO QPM 09/10/19 Objective - Vital Signs/Intake & Output Reviewed Vital Signs: Yes Vital Signs: Vital Signs x48h Temp Pulse Resp BP Pulse Ox 09/16/19 08:00 36.6 C 81 19 138/86 H 94 Intake & Output: Intake & Output 09/13/19 09/14/19 09/15/19 09/16/19 23:59 23:59 23:59 23:59 Intake Total 1830 2160 1020 810 Output Total 2430 1500 1125 1100 Balance -600 660 -105 -290 - Objective General Appearance: positive: No acute distress, Alert. negative: Lethargic Eyes Bilateral: positive: Normal inspection, PERRL, EOMI, No lid inflammation ENT: positive: ENT inspection nml, Pharynx nml, No signs of dehydration. negative: Purulent nasal drainage Neck: positive: Nml inspection, Thyroid nml, No JVD, Trachea midline. negative: Thyromegaly, Lymphadenopathy (R), Lymphadenopathy (L), Stiff neck, Tracheal deviation Respiratory: positive: Chest non-tender, No respiratory distress, Breath sounds nml. negative: Wheezes, Rales, Rhonchi Cardiovascular: positive: Regular rate & rhythm, No murmur, No gallop. negative: Irregularly irregular, Extrasystoles, Tachycardia, Bradycardia, JVD present, Systolic murmur, Diastolic murmur Peripheral Pulses: 2+ Radial (R), 2+ Radial (L), 2+ Dorsalis pedis (R), 2+ Dorsalis pedis (L) Abdomen: positive: Non-tender, No organomegaly, Nml bowel sounds, No distention. negative: Tenderness, Guarding, Rebound Back: positive: Nml inspection. negative: CVA tenderness (R), CVA tenderness (L) Skin: positive: Color nml, No rash, Warm, Dry. negative: Cyanosis, Diaphoresis, Pallor Extremities: positive: Non-tender, Full ROM, Nml appearance. negative: Calf tenderness, Maria Luz's sign/cords Neurologic/Psychiatric: positive: Oriented x3, Motor nml, Sensation nml. negative: Weakness, Sensory loss, Facial droop, Slurred/abnml speech, Depressed mood/affect - Lab Results Fish Bones: 09/16/19 04:15 09/16/19 04:15 Other Labs: Lab Results x24hrs 09/16/19 09/16/19 09/16/19 Range/Units 08:25 04:15 04:15 WBC 8.6 (4.8-10.8) x10^3/uL RBC 3.53 L (4.20-5.40) 10^6/uL Hgb 10.9 L (12.0-16.0) g/dL Hct 33.8 L (37.0-47.0) % MCV 95.8 (81.0-99.0) fL MCH 30.9 (27.0-31.0) pg MCHC 32.2 (32.0-36.0) g/dL RDW 13.5 (12.0-15.0) % Plt Count 277 (130-450) 10^3/uL MPV 10.7 (7.9-10.8) fL Neut # (Auto) 4.4 (1.5-6.6) 10^3/uL Lymph # (Auto) 3.1 (1.5-3.5) 10^3/uL [place] # (Auto) 0.7 (0.0-1.0) 10^3/uL Eos # (Auto) 0.2 (0.0-0.7) 10^3/uL Baso # (Auto) 0.0 (0.0-0.1) 10^3/uL Absolute Nucleated RBC 0.00 x10^3/uL Nucleated RBC % 0.0 /100WBC Sodium 140 (135-145) mmol/L Potassium 4.1 (3.5-5.0) mmol/L Chloride 105 (101-111) mmol/L Carbon Dioxide 27 (21-32) mmol/L Anion Gap 8.0 (6-13) BUN 23 H (6-20) mg/dL Creatinine 0.6 (0.4-1.0) mg/dL Estimated GFR (MDRD) 101 (>89) Glucose 185 H (70-100) mg/dL POC Whole Bld Glucose 121 H (70 - 100) mg/dL Calcium 8.9 (8.5-10.3) mg/dL 09/15/19 09/15/19 09/15/19 Range/Units 20:17 19:14 16:39 WBC (4.8-10.8) x10^3/uL RBC (4.20-5.40) 10^6/uL Hgb (12.0-16.0) g/dL Hct (37.0-47.0) % MCV (81.0-99.0) fL MCH (27.0-31.0) pg MCHC (32.0-36.0) g/dL RDW (12.0-15.0) % Plt Count (130-450) 10^3/uL MPV (7.9-10.8) fL Neut # (Auto) (1.5-6.6) 10^3/uL Lymph # (Auto) (1.5-3.5) 10^3/uL [place] # (Auto) (0.0-1.0) 10^3/uL Eos # (Auto) (0.0-0.7) 10^3/uL Baso # (Auto) (0.0-0.1) 10^3/uL Absolute Nucleated RBC x10^3/uL Nucleated RBC % /100WBC Sodium (135-145) mmol/L Potassium (3.5-5.0) mmol/L Chloride (101-111) mmol/L Carbon Dioxide (21-32) mmol/L Anion Gap (6-13) BUN (6-20) mg/dL Creatinine (0.4-1.0) mg/dL Estimated GFR (MDRD) (>89) Glucose (70-100) mg/dL POC Whole Bld Glucose 241 H 227 H 132 H (70 - 100) mg/dL Calcium (8.5-10.3) mg/dL 09/15/19 Range/Units 11:26 WBC (4.8-10.8) x10^3/uL RBC (4.20-5.40) 10^6/uL Hgb (12.0-16.0) g/dL Hct (37.0-47.0) % MCV (81.0-99.0) fL MCH (27.0-31.0) pg MCHC (32.0-36.0) g/dL RDW (12.0-15.0) % Plt Count (130-450) 10^3/uL MPV (7.9-10.8) fL Neut # (Auto) (1.5-6.6) 10^3/uL Lymph # (Auto) (1.5-3.5) 10^3/uL [place] # (Auto) (0.0-1.0) 10^3/uL Eos # (Auto) (0.0-0.7) 10^3/uL Baso # (Auto) (0.0-0.1) 10^3/uL Absolute Nucleated RBC x10^3/uL Nucleated RBC % /100WBC Sodium (135-145) mmol/L Potassium (3.5-5.0) mmol/L Chloride (101-111) mmol/L Carbon Dioxide (21-32) mmol/L Anion Gap (6-13) BUN (6-20) mg/dL Creatinine (0.4-1.0) mg/dL Estimated GFR (MDRD) (>89) Glucose (70-100) mg/dL POC Whole Bld Glucose 205 H (70 - 100) mg/dL Calcium (8.5-10.3) mg/dL ABX Reporting Has patient been on IV antibiotics over the past 48 hours?: Yes Sepsis Event Note (H) - Evaluation Current Stage of Sepsis: Resolved Possible source of Sepsis: positive: Genitourinary - Sepsis Criteria Sepsis Criteria: Recorded Heart Rate greater than 90 bpm, Recorded Respiratory Rate greater than 20, 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 pt is alert and oriented to person, location and time. great improved today. pt is alert and oriented to herself and location but not time yet. Head CT done at admission compared to prior study shows a new but not acute (when compared to old CT) small lacunar injury in the right globus pallidus measuring 5 mm and another small lacunar injury that has developed near the anterior limb of the left internal capsule measuring 7 mm x 5 mm. Ventricles have shown progressive enlargement compared to prior exam related to volume loss. continue PT/OT to see what her goals will be for rehab/SNF (3) Klebsiells UTI (urinary tract infection) 09/16 pt will finish antibiotics treatment on tomorrow. pt was treated with UTI for 5 days, continue another 2 days with Keflex p.o. Day #2, plan for 2 more days then done. (4) MAYO (acute kidney injury) Impression: Resolved. creatinine is 0.5 (5) Chronic pain Impression: stable, continue to treat her pain with Tylenol as needed for the time being. Restart Lyrica 09/13. (6) Depression Impression: stable, continue Lexapro as home meds (7) Diabetes mellitus better controlled glucose level. continue lantus 12 units, slide scale, ACHS and hypoglycemia protocol (8) Hyperkalemia Impression: resolved and it was likely secondary to the use of Bactrim and her acute kidney injury. (9) Diarrhea Impression: stable, add Florastor since pt is on antibiotics for UTI.
--- NOTE | 2019-09-16 20:16 | XRAY Report ---
Reason: previous femur distal fracture Procedure Date: 09/16/2019 Accession Number: [id number] / [id number] Procedure: XR - Knee 3 View LT CPT Code: Final Report FULL RESULT: EXAM: LEFT KNEE RADIOGRAPHY EXAM DATE: 09/16/2019 04:54 PM HISTORY: previous femur distal fracture COMPARISON: KNEE 3 VIEW LT 09/01/2019 6:05 PM TECHNIQUE: AP, crosstable lateral and Merchant, 3 views . FINDINGS: Heterogeneous cortex and trabeculation once again noted at the distal aspect of the femur adjacent to the femoral component of the knee prosthesis. Findings may represent a healing impaction fracture. No apparent acute fracture deformity. Grossly intact tibia and fibula. Unremarkable tibial component of the prosthesis. Once again there is severe lateral subluxation of the patella with the central patellar surface adjacent to the anterolateral margin of the femoral hardware. No apparent new patellar abnormality. Probable small joint effusion. Dystrophic calcifications noted in the soft tissues. There may be some mild soft tissue swelling. IMPRESSION: Similar appearance to the previous exam with evidence of a subacute or old impaction fracture at the distal femur without clear evidence of loosening of prosthesis components or other new bony abnormality. Continued severe lateral subluxation of the patella. RADIA
[2019-09-16] MEDS: traZODone 50 MG TABLET PO SCH (20:48)
[2019-09-16] MEDS: INSULIN GLARGINE 300 UNIT/3 ML PEN SUBQ SCH (20:49)
[2019-09-17] MEDS: SODIUM CHLORIDE FLUSH 0.9% 10 ML SYRINGE IVP SCH ×3 (00:03→17:14)
[2019-09-17] MEDS: cephALEXin 250 MG CAPSULE PO SCH ×3 (05:07→17:14)
[2019-09-17 05:08] LABS: BASOPHILS % (AUTO) 0.4 %; EOSINOPHILS # (AUTO) 0.2 10^3/uL (0.0-0.7); EOSINOPHILS % (AUTO) 2.9 %; HGB - HEMOGLOBIN 11.2 g/dL (12.0-16.0); LYMPHOCYTES # (AUTO) 3.1 10^3/uL (1.5-3.5); LYMPHOCYTES % (AUTO) 36.9 %; MEAN CORPUSCULAR HEMOGLOBIN 30.7 pg (27.0-31.0); MEAN CORPUSCULAR HGB CONC 32.2 g/dL (32.0-36.0); MEAN CORPUSCULAR VOLUME 95.3 fL (81.0-99.0); MEAN PLATELET VOLUME 10.6 fL (7.9-10.8); MONOCYTES # (AUTO) 0.7 10^3/uL (0.0-1.0); NEUTROPHILS # (AUTO) 4.3 10^3/uL (1.5-6.6); NEUTROPHILS % (AUTO) 51.2 %; PLT - PLATELET COUNT 286 10^3/uL (130-450); RED BLOOD COUNT 3.65 10^6/uL (4.20-5.40); RED CELL DISTRIBUTION WIDTH 13.3 % (12.0-15.0); WHITE BLOOD COUNT 8.4 x10^3/uL (4.8-10.8)
[2019-09-17 05:19] LABS: CALCIUM 8.6 mg/dL (8.5-10.3); CREATININE 0.7 mg/dL (0.4-1.0)
[2019-09-17] MEDS: SACCHAROMYCES BOULARDII 250 MG CAPSULE PO SCH ×2 (09:05→17:14)
[2019-09-17] MEDS: ENOXAPARIN 40 MG/0.4 ML SYRINGE SUBQ SCH (09:05)
[2019-09-17] MEDS: ESCITALOPRAM 10 MG TABLET PO SCH (09:05)
[2019-09-17] MEDS: NYSTATIN POWDER 15 GM TOP SCH ×2 (09:05→20:51)
[2019-09-17] MEDS: PREGABALIN 100 MG CAPSULE PO SCH ×2 (09:05→20:50)
[2019-09-17] MEDS: CLOPIDOGREL 75 MG TABLET PO SCH (09:05)
[2019-09-17] MEDS: SOLIFENACIN SUCCINATE 10 MG PO SCH (09:06)
[2019-09-17] MEDS: INSULIN ASPART 300 UNIT/3 ML PEN SUBQ SCH ×4 (09:06→20:52)
[2019-09-17] MEDS: ACETAMINOPHEN 325 MG TABLET PO PRN (09:53)
--- NOTE | 2019-09-17 11:32 | PROVIDER PROGRESS NOTE ---
Assessment/Plan - Problem List (1) Encephalopathy acute Assessment/Plan: 09/17 resolved 09/16 resolved. pt is alert and oriented to person, location and time. great improved today. pt is alert and oriented to herself and location but not time yet. Head CT done at admission compared to prior study shows a new but not acute (when compared to old CT) small lacunar injury in the right globus pallidus measuring 5 mm and another small lacunar injury that has developed near the anterior limb of the left internal capsule measuring 7 mm x 5 mm. Ventricles have shown progressive enlargement compared to prior exam related to volume loss. continue PT/OT to see what her goals will be for rehab/SNF (3) Klebsiells UTI (urinary tract infection) 09/17 antibiotics will be finished on today for 7 days. pt has normal WBC, no fever or chill. 09/16 pt will finish antibiotics treatment on tomorrow. pt was treated with UTI for 5 days, continue another 2 days with Keflex p.o. Day #2, plan for 2 more days then done. (4) MAYO (acute kidney injury) Impression: Resolved. creatinine is 0.5 (5) Chronic pain Impression: 09/17 pt denies any pain today. stable, continue to treat her pain with Tylenol as needed for the time being. Restart Lyrica 09/13. (6) Depression Impression: stable, continue Lexapro as home meds (7) Diabetes mellitus better controlled glucose level. continue lantus 12 units, slide scale, ACHS and hypoglycemia protocol (8) Hyperkalemia Impression: resolved and it was likely secondary to the use of Bactrim and her acute kidney injury. (9) Diarrhea Impression: stable, add Florastor since pt is on antibiotics for UTI. (10) hx of patella fracture pt had CT of her left lower extremity which revealed suspect fracture of patella, no definite acute femur farcture is seen on 09/01/19. at the time pt was prescribed knee immobilizer. today pt denies any pain on her left knee, and pt report she had no problem to walk with a walker, and state" I am fine, I do not need anything." continue pain control as needed continue PT/OT - Current Meds Current Meds: Current Medications Generic Name Dose Route Start Last Admin Trade Name Freq PRN Reason Stop Dose Admin Acetaminophen 650 mg 09/10/19 02:45 09/17/19 09:53 Tylenol PO 650 mg Q4HR PRN Administration Pain 1 to 4 Cephalexin 500 mg 09/13/19 13:00 09/17/19 11:07 Keflex PO 500 mg Q6HR [facility] Administration Clopidogrel Bisulfate 75 mg 09/11/19 09:00 09/17/19 09:05 Plavix PO 75 mg DAILY [facility] Administration Enoxaparin Sodium 40 mg 09/14/19 09:00 09/17/19 09:05 Lovenox SUBQ 40 mg DAILY [facility] Administration Escitalopram Oxalate 10 mg 09/11/19 09:00 09/17/19 09:05 Lexapro PO 10 mg DAILY [facility] Administration Insulin Aspart 1 - 9 unit 09/14/19 17:00 09/17/19 09:06 Novolog SUBQ 1 unit 0800,1200,1700,2100 [facility] Administration Protocol Insulin Glargine 12 unit 09/14/19 21:00 09/16/19 20:49 Lantus Solostar SUBQ 12 unit QPM [facility] Administration Nystatin 1 applic 09/10/19 09:00 09/17/19 09:05 Nystop TOP 1 applic BID [facility] Administration Patient Own Med ( 1 each 09/15/19 09:00 09/17/19 09:06 Solifenacin PO Not Given Succinate [Vesicare] DAILY [facility] 10 Mg) Pregabalin 100 mg 09/13/19 21:00 09/17/19 09:05 Lyrica PO 100 mg BID [facility] Administration Saccharomyces Boulardii 250 mg 09/15/19 08:00 09/17/19 09:05 Florastor PO 250 mg BIDWM [facility] Administration Sodium Chloride 10 ml 09/10/19 02:45 09/11/19 06:52 Normal Saline Flush 0.9% IVP 10 ml PRN PRN Administration NEEDED PER PROVIDER ORDERS Sodium Chloride 10 ml 09/10/19 09:00 09/17/19 09:09 Normal Saline Flush 0.9% IVP 10 ml 0100,0900,1700 [facility] Administration Trazodone HCl 50 mg 09/13/19 21:00 09/16/19 20:48 Desyrel PO 50 mg QPM [facility] Administration - Lab Result Fish Bone Diagrams: 09/17/19 04:15 09/17/19 04:15 - Additional Planning My Orders: My Active Orders 09/18/19 05:00 BMP - BASIC METABOLIC PANEL [CHEM] DAILYLAB CBC - COMP BLD CT W/AUTO DIFF [HEME] DAILYLAB 09/19/19 05:00 BMP - BASIC METABOLIC PANEL [CHEM] DAILYLAB CBC - COMP BLD CT W/AUTO DIFF [HEME] DAILYLAB Subjective - Subjective Patient Reports: Feeling Better Objective Vital Signs: Vital Signs - 24 hr 09/16/19 09/16/19 09/17/19 14:45 15:46 00:00 Temperature 36.9 C 37.0 C 36.9 C Heart Rate [ 77 78 76 Brachial] Respiratory 20 18 Rate Blood Pressure 123/72 [Left Brachial artery] Blood Pressure 124/70 155/72 H [Right Brachial artery] O2 Saturation 98 94 94 09/17/19 08:00 Temperature 36.7 C Heart Rate [ 75 Brachial] Respiratory 19 Rate Blood Pressure [Left Brachial artery] Blood Pressure 146/77 H [Right Brachial artery] O2 Saturation 94 Oxygen O2 Source Room air I&O (Last 24 Hrs): Intake and Output Totals x24h 09/15/19 09/16/19 09/17/19 23:59 23:59 23:59 Intake Total 1020 1710 630 Output Total 1125 1753 1000 Balance -105 -43 -370 General: Alert, Oriented x3, No acute distress HEENT: Atraumatic, PERRLA, EOMI Neck: Supple Lymphatic: no adenopathy Neuro: Alert, Non Focal, Oriented Times 3 Cardiovascular: Regular rate, Normal S1, Normal S2 Respiratory: Chest non-tender, No respiratory distress, Breath sounds nml Abdomen: Normal bowel sounds, Soft - Results Results: Laboratory Results WBC 8.4 x10^3/uL (4.8-10.8) 09/17/19 04:15 RBC 3.65 10^6/uL (4.20-5.40) L 09/17/19 04:15 Hgb 11.2 g/dL (12.0-16.0) L 09/17/19 04:15 Hct 34.8 % (37.0-47.0) L 09/17/19 04:15 MCV 95.3 fL (81.0-99.0) 09/17/19 04:15 MCH 30.7 pg (27.0-31.0) 09/17/19 04:15 MCHC 32.2 g/dL (32.0-36.0) 09/17/19 04:15 RDW 13.3 % (12.0-15.0) 09/17/19 04:15 Plt Count 286 10^3/uL (130-450) 09/17/19 04:15 MPV 10.6 fL (7.9-10.8) 09/17/19 04:15 Neut # (Auto) 4.3 10^3/uL (1.5-6.6) 09/17/19 04:15 Lymph # (Auto) 3.1 10^3/uL (1.5-3.5) 09/17/19 04:15 [place] # (Auto) 0.7 10^3/uL (0.0-1.0) 09/17/19 04:15 Eos # (Auto) 0.2 10^3/uL (0.0-0.7) 09/17/19 04:15 Baso # (Auto) 0.0 10^3/uL (0.0-0.1) 09/17/19 04:15 Absolute Nucleated RBC 0.00 x10^3/uL 09/17/19 04:15 Nucleated RBC % 0.0 /100WBC 09/17/19 04:15 VBG pH 7.311 (7.31-7.41) 09/09/19 00:35 VBG pCO2 43.8 mmHg (41-51) 09/09/19 00:35 VBG pO2 149.9 mmHg (25-47) H 09/09/19 00:35 VBG HCO3 21.6 mmol/L (23-28) L 09/09/19 00:35 VBG Total CO2 23.0 mmol/L (24-29) L 09/09/19 00:35 VBG O2 Saturation 98.4 % (60-80) H 09/09/19 00:35 VBG Base Excess -4.5 mmol/L (-2 - +2) L 09/09/19 00:35 Sodium 139 mmol/L (135-145) 09/17/19 04:15 Potassium 4.1 mmol/L (3.5-5.0) 09/17/19 04:15 Chloride 103 mmol/L (101-111) 09/17/19 04:15 Carbon Dioxide 28 mmol/L (21-32) 09/17/19 04:15 Anion Gap 8.0 (6-13) 09/17/19 04:15 BUN 18 mg/dL (6-20) 09/17/19 04:15 Creatinine 0.7 mg/dL (0.4-1.0) 09/17/19 04:15 Estimated GFR (MDRD) 85 (>89) L 09/17/19 04:15 Glucose 152 mg/dL (70-100) H 09/17/19 04:15 POC Whole Bld Glucose 160 mg/dL (70 - 100) H 09/17/19 08:00 Glycated Hemoglobin 8.1 % (4.6-6.2) H 09/10/19 04:33 Estim Average Glucose 186 (70-100) H 09/10/19 04:33 Lactic Acid 1.5 mmol/L (0.5-2.2) 09/10/19 00:35 Calcium 8.6 mg/dL (8.5-10.3) 09/17/19 04:15 Magnesium 1.7 mg/dL (1.7-2.8) 09/15/19 08:09 Total Bilirubin 0.4 mg/dL (0.2-1.0) 09/09/19 23:55 AST 14 IU/L (10-42) 09/09/19 23:55 ALT 13 IU/L (10-60) 09/09/19 23:55 Alkaline Phosphatase 105 IU/L (42-121) 09/09/19 23:55 Total Creatine Kinase 147 IU/L (22-269) 09/10/19 04:30 Total Protein 7.6 g/dL (6.7-8.2) 09/09/19 23:55 Albumin 3.4 g/dL (3.2-5.5) 09/09/19 23:55 Globulin 4.2 g/dL (2.1-4.2) 09/09/19 23:55 Albumin/Globulin Ratio 0.8 (1.0-2.2) L 09/09/19 23:55 Lipase 26 U/L (22-51) 09/09/19 23:55 TSH 2.15 uIU/mL (0.34-5.60) 09/09/19 23:55 Urine Color YELLOW 09/10/19 01:28 Urine Clarity CLOUDY (CLEAR) 09/10/19 01:28 Urine pH 5.5 PH (5.0-7.5) 09/10/19 01:28 Ur Specific [place] >=1.030 (1.002-1.030) H 09/10/19 01:28 Urine Protein 100 mg/dL (NEGATIVE) H 09/10/19 01:28 Urine Glucose (UA) 100 mg/dL (NEGATIVE) H 09/10/19 01:28 Urine Ketones TRACE mg/dL (NEGATIVE) 09/10/19 01:28 Urine Occult Blood MODERATE (NEGATIVE) H 09/10/19 01:28 Urine Nitrite POSITIVE (NEGATIVE) H 09/10/19 01:28 Urine Bilirubin NEGATIVE (NEGATIVE) 09/10/19 01:28 Urine Urobilinogen 0.2 (NORMAL) E.U./dL (NORMAL) 09/10/19 01:28 Ur Leukocyte Esterase LARGE (NEGATIVE) H 09/10/19 01:28 Urine RBC 0-5 /HPF (0-5) 09/10/19 01:28 Urine WBC >25 /HPF (0-5) H 09/10/19 01:28 Ur Squamous Epith Cells FEW Squamous (<= Few) 09/10/19 01:28 Urine Bacteria Many /HPF (None Seen) H 09/10/19 01:28 Ur Microscopic Review INDICATED 09/10/19 01:28 Urine Culture Comments INDICATED 09/10/19 01:28 Nasal Screen MRSA (PCR) NEGATIVE (NEGATIVE) 09/10/19 04:30 Urine Opiates Screen NEGATIVE (NEGATIVE) 09/10/19 01:28 Ur Oxycodone Screen NEGATIVE (NEGATIVE) 09/10/19 01:28 Urine Methadone Screen NEGATIVE (NEGATIVE) 09/10/19 01:28 Ur Propoxyphene Screen NEGATIVE (NEGATIVE) 09/10/19 01:28 Ur Barbiturates Screen NEGATIVE (NEGATIVE) 09/10/19 01:28 Ur Tricyclics Screen NEGATIVE (NEGATIVE) 09/10/19 01:28 Ur Phencyclidine Scrn NEGATIVE (NEGATIVE) 09/10/19 01:28 Ur Amphetamine Screen NEGATIVE (NEGATIVE) 09/10/19 01:28 U Methamphetamines Scrn NEGATIVE (NEGATIVE) 09/10/19 01:28 U Benzodiazepines Scrn POSITIVE (NEGATIVE) H 09/10/19 01:28 Urine Cocaine Screen NEGATIVE (NEGATIVE) 09/10/19 01:28 U Cannabinoids Screen POSITIVE (NEGATIVE) H 09/10/19 01:28 Ethyl Alcohol < 5.0 mg/dL 09/09/19 23:55 Sepsis Event Note (H) - Evaluation Current Stage of Sepsis: Resolved Possible source of Sepsis: positive: Genitourinary - Sepsis Criteria Sepsis Criteria: Recorded Heart Rate greater than 90 bpm, Recorded Respiratory Rate greater than 20, 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 (unrelated to primary neuro pathology) ABX Reporting Has patient been on IV antibiotics over the past 48 hours?: Yes Current Medications - Current Medications Current Medications: Active Medications Acetaminophen (Tylenol) 650 mg PO Q4HR PRN PRN Reason: Pain 1 to 4 Last Admin: 09/17/19 09:53 Dose: 650 mg Cephalexin (Keflex) 500 mg PO Q6HR [facility] Last Admin: 09/17/19 11:07 Dose: 500 mg Clopidogrel Bisulfate (Plavix) 75 mg PO DAILY [facility] Last Admin: 09/17/19 09:05 Dose: 75 mg Cyclobenzaprine HCl (Flexeril) 5 mg PO TID PRN PRN Reason: Spasms Enoxaparin Sodium (Lovenox) 40 mg SUBQ DAILY [facility] Last Admin: 09/17/19 09:05 Dose: 40 mg Escitalopram Oxalate (Lexapro) 10 mg PO DAILY [facility] Last Admin: 09/17/19 09:05 Dose: 10 mg Insulin Aspart (Novolog) 1 - 9 unit SUBQ 0800,1200,1700,2100 [facility]; Protocol Last Admin: 09/17/19 09:06 Dose: 1 unit Insulin Glargine (Lantus Solostar) 12 unit SUBQ QPM [facility] Last Admin: 09/16/19 20:49 Dose: 12 unit Nystatin (Nystop) 1 applic TOP BID [facility] Last Admin: 09/17/19 09:05 Dose: 1 applic Patient Own Med ( Solifenacin Succinate [Vesicare] 10 Mg) 1 each PO DAILY [facility] Last Admin: 09/17/19 09:06 Dose: Not Given Pregabalin (Lyrica) 100 mg PO BID [facility] Last Admin: 09/17/19 09:05 Dose: 100 mg Saccharomyces Boulardii (Florastor) 250 mg PO BIDWM [facility] Last Admin: 09/17/19 09:05 Dose: 250 mg Sodium Chloride (Normal Saline Flush 0.9%) 10 ml IVP PRN PRN PRN Reason: NEEDED PER PROVIDER ORDERS Last Admin: 09/11/19 06:52 Dose: 10 ml Sodium Chloride (Normal Saline Flush 0.9%) 10 ml IVP 0100,0900,1700 [facility] Last Admin: 09/17/19 09:09 Dose: 10 ml Trazodone HCl (Desyrel) 50 mg PO QPM [facility] Last Admin: 09/16/19 20:48 Dose: 50 mg metFORMIN [Glucophage] 1,000 mg PO BID 01/31/13 Diphenoxylate/Atropine [Lomotil] 1 each PO QID PRN 10/21/13 Rifampin [Rifadin] 300 mg PO BID 10/21/13 Clopidogrel [Plavix] 75 mg PO DAILY 09/10/19 Cyclobenzaprine HCl 5 mg PO TID PRN 09/10/[address] [Voltaren] 75 mg PO BID 09/10/19 Escitalopram [Lexapro] 10 mg PO DAILY 09/10/19 Insulin Glargine [Lantus Solostar] 40 units SUBQ QPM 09/10/19 Pregabalin [Lyrica] 100 mg PO BID 09/10/19 Solifenacin Succinate [Vesicare] 10 mg PO DAILY 09/10/19 Sulfamethox/Trimeth 800/160 [Bactrim Ds] 1 tab PO BID 09/10/19 traMADol [Ultram] 50 mg PO Q6HR PRN 09/10/19 traZODone [Desyrel] 50 mg PO QPM 09/10/19
[2019-09-17] MEDS: traZODone 50 MG TABLET PO SCH (20:50)
[2019-09-17] MEDS: INSULIN GLARGINE 300 UNIT/3 ML PEN SUBQ SCH (20:52)
[2019-09-18] MEDS: cephALEXin 250 MG CAPSULE PO SCH ×2 (00:02→06:56)
[2019-09-18] MEDS: SODIUM CHLORIDE FLUSH 0.9% 10 ML SYRINGE IVP SCH ×2 (00:02→09:03)
[2019-09-18 05:00] LABS: BASOPHILS % (AUTO) 0.5 %; EOSINOPHILS # (AUTO) 0.2 10^3/uL (0.0-0.7); EOSINOPHILS % (AUTO) 2.7 %; HGB - HEMOGLOBIN 11.2 g/dL (12.0-16.0); LYMPHOCYTES # (AUTO) 2.8 10^3/uL (1.5-3.5); LYMPHOCYTES % (AUTO) 33.3 %; MEAN CORPUSCULAR HEMOGLOBIN 29.7 pg (27.0-31.0); MEAN CORPUSCULAR HGB CONC 31.6 g/dL (32.0-36.0); MEAN CORPUSCULAR VOLUME 93.9 fL (81.0-99.0); MEAN PLATELET VOLUME 10.4 fL (7.9-10.8); MONOCYTES # (AUTO) 0.7 10^3/uL (0.0-1.0); MONOCYTES % (AUTO) 7.9 %; NEUTROPHILS # (AUTO) 4.7 10^3/uL (1.5-6.6); PLT - PLATELET COUNT 287 10^3/uL (130-450); RED BLOOD COUNT 3.77 10^6/uL (4.20-5.40); RED CELL DISTRIBUTION WIDTH 13.4 % (12.0-15.0); WHITE BLOOD COUNT 8.5 x10^3/uL (4.8-10.8)
[2019-09-18 05:10] LABS: CREATININE 0.7 mg/dL (0.4-1.0)
[2019-09-18 07:46] VITALS: BP 143/75
--- NOTE | 2019-09-18 08:33 | Discharge Plan ---
"Discharge Plan for SNF / [facility] - Discharge Plan And Transition Orders Problem Reviewed?: Yes Disposition: 03 SNF DC/Xfer Condition: Stable Allergies and Adverse Reactions: Allergies Allergy/AdvReac Type Severity Reaction Status Date / Time morphine Allergy Unknown unknown Verified 09/02/19 20:38 Penicillins Allergy Unknown unknown Verified 09/02/19 20:38 Health Concerns: weakness Plan of Treatment: continue PT/OT in [facility] Goals: stabilization and improvement of your medical conditions Assessment: discuss the care plan with you, you understood. - SNF / [facility] Transition Orders Admit to (Facility): [facility] Under the care of (Name): Clint Brown Discharge Diagnosis: encephalopathy acute, UTI, MAYO, DM2, chronic pain, depression, hx of patella fracture Medicare Certification Statement: I certify that [facility] care is medically necessary on a continuing basis for any of the conditions for which she/he is receiving care during hospitalization. Notify PCP of admission and forward orders to primary provider for signature. Weight on admission and: Daily Call PCP immediately if weight increases by: 2 kg Other Notification Orders: Call PCP immediately if patient develops dyspnea, chest pain/tightness or edema. House Bowel Program: Yes Additional Bowel Program Orders: If no BM after 2 days, nurse may give M.O.M. 30ml PO PRN and/or ducolax Supp 1 [place] and/or JUDY 250mg P.O., and/or senna 1-2 tabs PO. On day 3 nurse may give repeat above order until residents constipation is resolved. Annual Influenza Vaccine (between May 31 and December 28): Yes Two-step PPD per [facility] [id number] or approved exception documents: Yes Treatments & Other Orders: pt may followup her PCP or other provider of the facility when she is arrival at [facility]. pt has hx of patella fracture. pt may followup orthopedics as out-pt. Medication Orders: PLEASE REFER TO THE DISCHARGE MEDICATION LIST. Insulin Orders?: Yes - Diet Type: Geriatric Texture: Regular Liquids: Thin May have monthly special meal: Yes - Therapies | Activity Therapy: Evaluation | Treat if indicated: PT, OT Rehabilitation Potential: Maximize functional status Activity: Activity as Tolerated Additional Instructions: pt may followup her PCP or other provider of the facility when she is arrival at [facility]. pt has hx of patella fracture. pt may followup orthopedics as out-pt. Insulin Orders - SNF Basal | Correction | Custom Orders: Diagnosis: Diabetes Initiate hypo and hyperglycemia protocols for BG <70 and BG >375. May check BG PRN for signs/symptoms of dysglycemia. Frequency of BG checks: [AC/Meal/HS] Basal Insulin: [x] Lantus 100 units / ml inject subq as follows: [12 units QPM] [] Other: [] Correction Insulin: - Select the type of insulin below [Choose: Novolog/Humalog]100 units /ml insulin inject subq per orders indicate below [] LOW DOSE [x] MODERATE DOSE [] MODERATE/HIGH DOSE [] HIGH DOSE GB UNITS GB UNITS GB UNITS GB UNITS 61-140 0 UNITS 61-140 0 UNITS 61-140 0 UNITS 61-140 0 UNITS 141-175 1 UNITS 141-175 1 UNITS 141-175 2 UNITS 141-175 3 UNITS 176-225 2 UNITS 176-225 3 UNITS 176-225 4 UNITS 176-225 5 UNITS 226-275 3 UNITS 226-275 5 UNITS 226-275 6 UNITS 226-275 7 UNITS 276-325 4 UNITS 276-325 7 UNITS 276-325 8 UNITS 276-325 9 UNITS 326-375 5 UNITS 326-375 9 UNITS 326-375 10 UNITS 326-375 11 UNITS >375 CONTACT MD >375 CONTACT MD >375 CONTACT MD >375 CONTACT MD Custom Dosing: [Choose: Novolog/Humalog] 100 units/ml Insulin inject subq as follows: GB Units 61-140 [] Units 141-175 [] Units 176-225 [] Units 226-275 [] Units 276-325 []Units 326-375 [] Units >375 Contact MD"
[2019-09-18] MEDS: ENOXAPARIN 40 MG/0.4 ML SYRINGE SUBQ SCH (09:03)
[2019-09-18] MEDS: INSULIN ASPART 300 UNIT/3 ML PEN SUBQ SCH (09:03)
[2019-09-18] MEDS: CLOPIDOGREL 75 MG TABLET PO SCH (09:03)
[2019-09-18] MEDS: SOLIFENACIN SUCCINATE 10 MG PO SCH (09:03)
[2019-09-18] MEDS: PREGABALIN 100 MG CAPSULE PO SCH (09:03)
[2019-09-18] MEDS: ESCITALOPRAM 10 MG TABLET PO SCH (09:03)
[2019-09-18] MEDS: NYSTATIN POWDER 15 GM TOP SCH (09:03)
[2019-09-18] MEDS: SACCHAROMYCES BOULARDII 250 MG CAPSULE PO SCH (09:03)
--- NOTE | 2019-09-18 09:23 | DISCHARGE SUMMARY ---
Discharge Summary Admit Date: 09/10/19 Discharge Date: 09/18/19 Discharging Provider: WORLEY Primary Care Provider: Susy Brown Condition at Discharge: Stable Discharge Disposition: 03 SNF DC/Xfer Discharge Facility Name: [facility] - DIAGNOSES Admission Diagnoses: (1) Sepsis (2) Encephalopathy acute (3) UTI (urinary tract infection) (4) MAYO (acute kidney injury) (5) Hyperkalemia (6) Diabetes mellitus (7) Chronic pain (8) Depression Discharge Diagnoses with Status of Each Condition: (1) Encephalopathy acute resolved (2) Klebsiells UTI (urinary tract infection) stable/resolved. pt finished treatment course 7 days in hospital. pt was found to have klebsiells pneumoniae UTI. (3) MAYO (acute kidney injury) Resolved. creatinine is 0.5 (4) Chronic pain stable (5) Depression stable (6) Diabetes mellitus stable. pt is prescribd Lantus 12 unit QPM. (7) Hyperkalemia resolved (8) Diarrhea resolved (9) fall and hx of patella fracture stable. pt had patella fracture on 09/01/[address] of knee. pt denies pain. she walk with walker. pt is d/c to SNF for further training. - HPI History of Present Illness: refer from Dr. Trivedi's HPI on 09/10/19 Patient is a 63 y/o female who was brought in by her daughter with encephalopathy. Her daughter reports that she was alert in the morning when but slowly started getting weak and sleepy through the course of the day. At lunch she could hardly stay awake enough to eat. She was also reaching for things that were not there and mumbling unintelligible words. At dinner she was unarousable. The patient just moved back to [facility] from the [facility] on August 19 2019. She was living there with her who was her main caregiver until he suddenly from a coronary event. She was then in a nursing facility where she was supposedly on antibiotics for ?UTI. It is also reported that she had broken her right leg and it healed wrongly. She has Qciepxu-Dlcun-Jyala Disease and has had multiple orthopedic surgeries. As a result she is full assist for transfers. She is not able to bear weight on her feet. Her daughter has bee lifting her to transfer her for the past days. She had an initial visit with [facility] to establish care. She has been on bactrim since 09/03/19 for a UTI. She had also been having diarrhea and has been on oral vancomycin. It is unclear if C.diff was tested prior. He daughter reports improvement in the diarrhea. In the ED attempt at obtaining a UA resulted in a thick whitish urine sample described as almost sludge-like. It was indicative of a UTI. She had a creatinine of 2.3. Eight days prior her creatinine was 0.6. She was also found to have a potassium of 6.4. though EKG showed normal sinus rhythm. She is currently altered and unable to provide any history. However as a result of these objective findings, she is being admitted for further treatment. - HOSPITAL COURSE Hospital Course: pt was found acute encephalopathy, UTI, hyperkalemia, MAYO, fall. pt was treated with antibiotics, IVF of NA. after treatment, pt became oriented. MAYO was resolved as well after hydration. pt had hx of left knee patella fracture on 09/01/19. Now pt can walk with walker without knee pain. PT and OT evaluated and treated pt, and recommended to d/c SNF. The detail hospital course is as the below. (1) Encephalopathy acute resolved (2) Klebsiells UTI (urinary tract infection) stable/resolved. pt finished treatment course 7 days in hospital. pt was found to have klebsiells pneumoniae UTI. (3) MAYO (acute kidney injury) Resolved. creatinine is 0.5 (4) Chronic pain stable (5) Depression stable (6) Diabetes mellitus stable. pt is prescribd Lantus 12 unit QPM. (7) Hyperkalemia resolved (8) Diarrhea resolved (9) fall and hx of patella fracture stable. pt had patella fracture on 09/01/[address] of knee. pt denies any more pain on her knee. she walk with walker. pt is d/c to SNF for further training. - ALLERGIES Allergies/Adverse Reactions: Allergies Allergy/AdvReac Type Severity Reaction Status Date / Time morphine Allergy Unknown unknown Verified 09/02/19 20:38 Penicillins Allergy Unknown unknown Verified 09/02/19 20:38 - MEDICATIONS Home Medications: Ambulatory Orders Medication Instructions Recorded Confirmed metFORMIN [Glucophage] 1,000 mg PO BID 01/31/13 09/10/19 Fesoterodine Fumarate [Toviaz] 4 mg PO DAILY #14 tab.er.24h 04/07/13 Diphenoxylate/Atropine [Lomotil] 1 each PO QID PRN 10/21/13 10/21/13 Dicyclomine [Bentyl] 10 mg PO QID PRN #15 capsule 10/22/13 Clopidogrel [Plavix] 75 mg PO DAILY 09/10/19 09/10/19 Cyclobenzaprine HCl 5 mg PO TID PRN 09/10/19 09/10/[address] [Voltaren] 75 mg PO BID 09/10/19 09/10/19 Escitalopram [Lexapro] 10 mg PO DAILY 09/10/19 09/10/19 Pregabalin [Lyrica] 100 mg PO BID 09/10/19 09/10/19 Solifenacin Succinate [Vesicare] 10 mg PO DAILY 09/10/19 09/10/19 traMADol [Ultram] 50 mg PO Q6HR PRN 09/10/19 09/10/19 traZODone [Desyrel] 50 mg PO QPM 09/10/19 09/10/19 Insulin Glargine [Lantus Solostar] 12 unit SUBQ QPM #1 pen 09/18/19 - PHYSICAL EXAM AT DISCHARGE General Appearance: positive: No acute distress, Alert. negative: Lethargic Eyes Bilateral: positive: Normal inspection, PERRL, EOMI, No lid inflammation ENT: positive: ENT inspection nml, Pharynx nml, No signs of dehydration. negative: Purulent nasal drainage Neck: positive: Nml inspection, Thyroid nml, No JVD, Trachea midline. negative: Thyromegaly, Lymphadenopathy (R), Lymphadenopathy (L), Stiff neck, Tracheal deviation Respiratory: positive: Chest non-tender, No respiratory distress, Breath sounds nml. negative: Wheezes, Rales, Rhonchi Cardiovascular: positive: Regular rate & rhythm, No murmur, No gallop. negative: Irregularly irregular, Extrasystoles, Tachycardia, Bradycardia, JVD present, Systolic murmur, Diastolic murmur Peripheral Pulses: positive: 2+ Abdomen: positive: Non-tender, No organomegaly, Nml bowel sounds, No distention. negative: Tenderness, Guarding, Rebound Back: positive: Nml inspection. negative: CVA tenderness (R), CVA tenderness (L) Skin: positive: Color nml, No rash, Warm, Dry. negative: Cyanosis, Diaphoresis, Pallor Extremities: positive: Non-tender, Nml appearance. negative: Calf tenderness, Maria Luz's sign/cords Neurologic/Psychiatric: positive: Oriented x3, Sensation nml. negative: Weakness, Sensory loss, Facial droop, Slurred/abnml speech, Depressed mood/affect - LABS Result Diagrams: 09/18/19 04:35 09/18/19 04:35 - SEPSIS Current Stage of Sepsis: Resolved Possible source of Sepsis: Genitourinary Sepsis Criteria: Recorded Heart Rate greater than 90 bpm, Recorded Respiratory Rate greater than 20, APPRENTICE/LINEMAN: altered consciousness (unrelated to primary neuro pathology) - FOLLOW UP Follow Up: pt may followup her PCP or other provider of the facility when she is arrival at [facility]. pt has hx of patella fracture. pt may followup orthopedics as out-pt. - TIME SPENT Time Spent in Discharge (Minutes): 45
== END 2019-09-18 10:46 | DRG 871 ==
LOC: EDUNIT# → ED 23:33 → MS3 09-10 02:45
PROVIDERS: ADMIT Internal Medicine; ATTEND Nurse Practitioner Gerontology
DX: A41.59 Other Gram-negative sepsis (principal); G92 Toxic encephalopathy; N17.9 Acute kidney failure, unspecified; N39.0 Urinary tract infection, site not specified; Z16.24 Resistance to multiple antibiotics; E87.5 Hyperkalemia; T36.8X5A Adverse effect of other systemic antibiotics, initial encounter; Y92.009 Unspecified place in unspecified non-institutional (private) residence as the place of occurrence of the external cause; R65.20 Severe sepsis without septic shock; S82.002D Unspecified fracture of left patella, subsequent encounter for closed fracture with routine healing; G89.29 Other chronic pain; F32.9 Major depressive disorder, single episode, unspecified; R19.7 Diarrhea, unspecified; E11.610 Type 2 diabetes mellitus with diabetic neuropathic arthropathy; G93.89 Other specified disorders of brain; K21.9 Gastro-esophageal reflux disease without esophagitis; H51.8 Other specified disorders of binocular movement; Z91.81 History of falling; Z86.14 Personal history of Methicillin resistant Staphylococcus aureus infection; Z79.899 Other long term (current) drug therapy; Z79.1 Long term (current) use of non-steroidal anti-inflammatories (NSAID); Z79.4 Long term (current) use of insulin; Z99.3 Dependence on wheelchair
CPT/HCPCS: 36415; 51702; 70450; 71045; 73562; 80048; 80053; 80306; 80320; 81001; 82550; 82803; 83036; 83605; 83690; 83735; 84443; 85025; 87040; 87077; 87086; 87181; 87640; 93005; 96361; 96365; 97162; 97530; 99281; 99285; A9270; J1650; J1815; J3490; 81003